=== PATIENT | male | born 1935 | race Caucasian/White ===

== ENCOUNTER → 2017-02-09 | Outpatient (REF) | payer OTHER, MEDICARE ==
[2017-02-09 13:13] LABS: ALBUMIN 3.5 GM/DL (3.2-5.2); ALKALINE PHOSPHATASE 64 U/L (45-117); ALT/SGPT 29 U/L (12-78); ANION GAP 6 MEQ/L (8-16); AST/SGOT 25 U/L (15-37); BILIRUBIN,TOTAL 1.5 MG/DL (0.2-1.0); BLOOD UREA NITROGEN 22 MG/DL (7-18); CALCIUM LEVEL 8.6 MG/DL (8.8-10.2); CARBON DIOXIDE LEVEL 27 MEQ/L (21-32); CHLORIDE LEVEL 106 MEQ/L (98-107); CHOLESTEROL LEVEL 177 MG/DL (<200); GLOMERULAR FILTRATION RATE > 60.0 (>35); GLUCOSE, FASTING 92 MG/DL (83-110); POTASSIUM SERUM 4.6 MEQ/L (3.5-5.1); SODIUM LEVEL 139 MEQ/L (136-145); TOTAL PROTEIN 6.2 GM/DL (6.4-8.2); TRIGLYCERIDES LEVEL 59 MG/DL (<150); URIC ACID 4.9 MG/DL (3.5-7.2)
== END ==
LOC: M LABDRAW1 11:40
PROVIDERS: ATTEND Internal Medicine
DX: M10.9 Gout, unspecified (principal); I10 Essential (primary) hypertension; E78.00 Pure hypercholesterolemia, unspecified

== ENCOUNTER → 2017-03-25 | Outpatient (REF) | payer MEDICARE, OTHER | LOC: M LABDRAW1 13:05 | PROVIDERS: ATTEND Urology | DX: Z87.898 Personal history of other specified conditions (principal) ==

== ENCOUNTER → 2017-05-13 | Outpatient (CLI) | payer MEDICARE, OTHER ==
--- NOTE | 2017-05-13 13:02 | REP ---
REASON FOR EXAM: Abdominal pain. COMPARISON: 12/27/2014 which is the latest prior. There are chronic changes in the lung bases status quo. There are no pleural or pericardial effusions. Limited evaluation of the solid intra-abdominal organs show no gross abnormalities or significant changes from the prior exam. There are stable hepatic cysts. Surgical clips are again seen in the gallbladder fossa from previous cholecystectomy. Limited evaluation of the pancreas and adrenal glands show no gross abnormalities or significant changes from the prior exam. Again seen in the left kidney there is a subcentimeter sized calculus which is not causing obstructive phenomena. In the right kidney there is a new 2 mm size calcification in the inferior pole region which is not causing obstructive phenomena. There are no ureteroliths and there are no urinary bladder calcifications. There are bilateral pelvic phleboliths status quo. 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 Limited evaluation of the abdominal aortic and para-aortic regions show no gross abnormalities or significant changes from the prior exam. Limited evaluation of the bowel loops and their mesenteries show no gross abnormalities or significant changes from the prior exam. Limited evaluation of the abdominal aorta and para-aortic regions show no gross abnormalities or significant changes from the prior exam. Mild calcific atherosclerotic change is again noted status quo. There is no free fluid or free air seen in the abdomen or pelvis. Bone window technique throughout the exam shows chronic spinal degenerative changes and postoperative changes status quo. IMPRESSION: There is a small new right nephrolith as described above. The examination is otherwise unchanged from the prior exam showing no evidence of acute intra-abdominal or intrapelvic disease. Signed by Jarrett Mcdonald DO 05/13/2017 04:44 P
== END ==
LOC: M RAD 11:22
PROVIDERS: ATTEND Urology
DX: N20.0 Calculus of kidney (principal)

== ENCOUNTER → 2018-01-11 | Outpatient (CLI) | payer MEDICARE, OTHER | LOC: M RAD 10:33 | DX: I70.213 Atherosclerosis of native arteries of extremities with intermittent claudication, bilateral legs (principal); M79.604 Pain in right leg; M79.605 Pain in left leg | CPT/HCPCS: 93923 ==

== ENCOUNTER → 2018-02-02 | Outpatient (REF) | payer MEDICARE, OTHER ==
[2018-02-02 12:20] LABS: BASO % 0.7 % (0.0-1.0); EOS # 0.2 10^3/uL (0.0-0.50); EOS % 3.7 % (0.0-3.0); HEMATOCRIT 41.9 % (42.0-52.0); HEMOGLOBIN 14.6 g/dl (13.5-17.5); IMMATURE GRANULOCYTE % 0.2 % (0-3.0); LYMPH # 1.1 10^3/uL (1.5-4.5); LYMPH % 18.7 % (24.0-44.0); MEAN CORPUSCULAR HEMOGLOBIN 31.4 pg (27.0-33.0); MEAN CORPUSCULAR HGB CONC 34.8 g/dl (32.0-36.5); MEAN CORPUSCULAR VOLUME 90.1 fl (80.0-96.0); MONO # 0.6 10^3/uL (0.0-0.8); MONO % 10.7 % (0.0-5.0); NEUTROPHILS # 3.7 10^3/uL (1.8-7.7); PLATELET COUNT, AUTOMATED 165 10^3/uL (150-450); RED BLOOD COUNT 4.65 10^6/uL (4.30-6.10); RED CELL DISTRIBUTION WIDTH 12.4 % (11.5-14.5); WHITE BLOOD COUNT 5.6 10^3/uL (4.0-10.0)
[2018-02-02 12:36] LABS: ANION GAP 7 MEQ/L (8-16); BLOOD UREA NITROGEN 23 MG/DL (7-18); CALCIUM LEVEL 8.8 MG/DL (8.8-10.2); CARBON DIOXIDE LEVEL 26 MEQ/L (21-32); CHLORIDE LEVEL 105 MEQ/L (98-107); CREATININE FOR GFR 1.13 MG/DL (0.70-1.30); GLOMERULAR FILTRATION RATE > 60.0 (>35); GLUCOSE, FASTING 89 MG/DL (70-100); POTASSIUM SERUM 4.8 MEQ/L (3.5-5.1); SODIUM LEVEL 138 MEQ/L (136-145)
== END ==
LOC: M LABDRAW1 11:40
DX: I25.10 Atherosclerotic heart disease of native coronary artery without angina pectoris (principal)
CPT/HCPCS: 80048

== ENCOUNTER → 2018-02-14 | Outpatient (REF) | payer MEDICARE, OTHER ==
[2018-02-14 13:01] LABS: ALBUMIN 4.1 GM/DL (3.2-5.2); ALBUMIN/GLOBULIN RATIO 1.37 (1.00-1.93); ALKALINE PHOSPHATASE 74 U/L (45-117); ALT/SGPT 30 U/L (12-78); ANION GAP 6 MEQ/L (8-16); AST/SGOT 27 U/L (7-37); BILIRUBIN,TOTAL 1.5 MG/DL (0.2-1.0); BLOOD UREA NITROGEN 24 MG/DL (7-18); CALCIUM LEVEL 8.8 MG/DL (8.8-10.2); CARBON DIOXIDE LEVEL 27 MEQ/L (21-32); CHLORIDE LEVEL 108 MEQ/L (98-107); CHOLESTEROL LEVEL 190 MG/DL (<200); CHOLESTEROL RISK RATIO 3.653 (<5); CREATININE FOR GFR 1.05 MG/DL (0.70-1.30); GLOMERULAR FILTRATION RATE > 60.0 (>35); GLUCOSE, FASTING 86 MG/DL (70-100); HDL CHOLESTEROL 52 MG/DL (>40); LDL CHOLESTEROL 120.8 MG/DL (<100); MAGNESIUM LEVEL 2.1 MG/DL (1.8-2.4); NON-HDL-C 138 MG/DL; POTASSIUM SERUM 4.5 MEQ/L (3.5-5.1); SODIUM LEVEL 141 MEQ/L (136-145); TOTAL PROTEIN 7.1 GM/DL (6.4-8.2); TRIGLYCERIDES LEVEL 86 MG/DL (<150); URIC ACID 4.6 MG/DL (3.5-7.2)
== END ==
LOC: M LABDRAW1 08:57
DX: M10.9 Gout, unspecified (principal); E78.00 Pure hypercholesterolemia, unspecified; I10 Essential (primary) hypertension
CPT/HCPCS: 83735

== ENCOUNTER → 2018-04-28 | Outpatient (REF) | payer MEDICARE, OTHER ==
[2018-04-28 12:51] LABS: BASO # 0.1 10^3/uL (0.0-0.2); BASO % 1.1 % (0.0-1.0); EOS # 0.3 10^3/uL (0.0-0.50); EOS % 4.5 % (0.0-3.0); HEMATOCRIT 37.5 % (42.0-52.0); IMMATURE GRANULOCYTE % 0.5 % (0-3.0); LYMPH # 1.1 10^3/uL (1.5-4.5); LYMPH % 20.1 % (24.0-44.0); MEAN CORPUSCULAR HEMOGLOBIN 31.6 pg (27.0-33.0); MEAN CORPUSCULAR HGB CONC 34.7 g/dl (32.0-36.5); MEAN CORPUSCULAR VOLUME 91.2 fl (80.0-96.0); MONO # 0.7 10^3/uL (0.0-0.8); MONO % 12.4 % (0.0-5.0); NEUTROPHILS # 3.4 10^3/uL (1.8-7.7); NEUTROPHILS % 61.4 % (36.0-66.0); PLATELET COUNT, AUTOMATED 132 10^3/uL (150-450); RED BLOOD COUNT 4.11 10^6/uL (4.30-6.10); RED CELL DISTRIBUTION WIDTH 12.7 % (11.5-14.5); WHITE BLOOD COUNT 5.6 10^3/uL (4.0-10.0)
[2018-04-28 13:23] LABS: ANION GAP 9 MEQ/L (8-16); BLOOD UREA NITROGEN 23 MG/DL (7-18); CALCIUM LEVEL 8.6 MG/DL (8.8-10.2); CARBON DIOXIDE LEVEL 27 MEQ/L (21-32); CHLORIDE LEVEL 105 MEQ/L (98-107); CREATININE FOR GFR 1.02 MG/DL (0.70-1.30); GLOMERULAR FILTRATION RATE > 60.0 (>35); GLUCOSE, FASTING 99 MG/DL (70-100); POTASSIUM SERUM 4.6 MEQ/L (3.5-5.1); SODIUM LEVEL 141 MEQ/L (136-145)
== END ==
LOC: M LABDRAW1 11:49
DX: R94.31 Abnormal electrocardiogram [ECG] [EKG] (principal); I35.0 Nonrheumatic aortic (valve) stenosis; I25.10 Atherosclerotic heart disease of native coronary artery without angina pectoris; I49.3 Ventricular premature depolarization
CPT/HCPCS: 80048

== ENCOUNTER → 2018-05-18 | Outpatient (REF) | payer MEDICARE, OTHER ==
[2018-05-18 13:18] LABS: PSA SCREENING 1.63 NG/ML (< 4.0)
== END ==
LOC: M SMT 12:24
DX: Z12.5 Encounter for screening for malignant neoplasm of prostate (principal)
CPT/HCPCS: G0103

== ENCOUNTER → 2018-05-25 | Outpatient (CLI) | payer MEDICARE, OTHER ==
[~2018-05-25] MED LIST: ACETAMINOPHEN 325 MG TAB As Ordered; HEPARIN 1,000 UNITS/ML 10ML VIAL (FOR RADIOLOGY& DIALYSIS ONLY) As Ordered; ISOVUE-300 61% 50ML VIAL (Q9967) As Ordered
== END | disposition home or self-care (01) ==
LOC: M IRPRO 08:01
DX: I70.213 Atherosclerosis of native arteries of extremities with intermittent claudication, bilateral legs (principal); I70.0 Atherosclerosis of aorta
CPT/HCPCS: 36247

== ENCOUNTER → 2018-07-21 | Outpatient (REF) | payer MEDICARE, OTHER ==
[2018-07-21 17:40] LABS: HEMATOCRIT 37.3 % (42.0-52.0); HEMOGLOBIN 12.9 g/dl (13.5-17.5); MEAN CORPUSCULAR HEMOGLOBIN 31.5 pg (27.0-33.0); MEAN CORPUSCULAR HGB CONC 34.6 g/dl (32.0-36.5); PLATELET COUNT, AUTOMATED 130 10^3/uL (150-450); RED CELL DISTRIBUTION WIDTH 12.3 % (11.5-14.5); WHITE BLOOD COUNT 5.3 10^3/uL (4.0-10.0)
[2018-07-21 17:49] LABS: ALBUMIN 3.7 GM/DL (3.2-5.2); ALBUMIN/GLOBULIN RATIO 1.48 (1.00-1.93); ALKALINE PHOSPHATASE 66 U/L (45-117); ALT/SGPT 33 U/L (12-78); ANION GAP 6 MEQ/L (8-16); AST/SGOT 39 U/L (7-37); BILIRUBIN,TOTAL 1.5 MG/DL (0.2-1.0); BLOOD UREA NITROGEN 19 MG/DL (7-18); CALCIUM LEVEL 8.4 MG/DL (8.8-10.2); CARBON DIOXIDE LEVEL 30 MEQ/L (21-32); CHLORIDE LEVEL 106 MEQ/L (98-107); CHOLESTEROL LEVEL 173 MG/DL (<200); CHOLESTEROL RISK RATIO 3.145 (<5); GLOMERULAR FILTRATION RATE > 60.0 (>35); GLUCOSE, FASTING 80 MG/DL (70-100); HDL CHOLESTEROL 55 MG/DL (>40); LDL CHOLESTEROL 108 MG/DL (<100); MAGNESIUM LEVEL 1.9 MG/DL (1.8-2.4); NON-HDL-C 118 MG/DL; POTASSIUM SERUM 4.1 MEQ/L (3.5-5.1); SODIUM LEVEL 142 MEQ/L (136-145); TOTAL PROTEIN 6.2 GM/DL (6.4-8.2); TRIGLYCERIDES LEVEL 51 MG/DL (<150); URIC ACID 5.2 MG/DL (3.5-7.2)
== END ==
LOC: M LABDRAW1 16:28
DX: Z79.899 Other long term (current) drug therapy (principal); E78.00 Pure hypercholesterolemia, unspecified; I10 Essential (primary) hypertension; M10.9 Gout, unspecified
CPT/HCPCS: 83735

== ENCOUNTER → 2019-01-23 | Outpatient (REF) | payer MEDICARE, OTHER ==
[2019-01-23 16:26] LABS: ALBUMIN 3.8 GM/DL (3.2-5.2); ALT/SGPT 23 U/L (12-78); BILIRUBIN,TOTAL 1.1 MG/DL (0.2-1.0); BLOOD UREA NITROGEN 23 MG/DL (7-18); CALCIUM LEVEL 8.4 MG/DL (8.8-10.2); CARBON DIOXIDE LEVEL 27 MEQ/L (21-32); CHLORIDE LEVEL 108 MEQ/L (98-107); CHOLESTEROL LEVEL 164 MG/DL (<200); CHOLESTEROL RISK RATIO 2.981 (<5); CREATININE FOR GFR 0.99 MG/DL (0.70-1.30); GLOMERULAR FILTRATION RATE > 60.0 (>35); GLUCOSE, FASTING 91 MG/DL (70-100); HDL CHOLESTEROL 55 MG/DL (>40); LDL CHOLESTEROL 98 MG/DL (<100); MAGNESIUM LEVEL 1.9 MG/DL (1.8-2.4); NON-HDL-C 109 MG/DL; POTASSIUM SERUM 4.4 MEQ/L (3.5-5.1); SODIUM LEVEL 139 MEQ/L (136-145); TOTAL PROTEIN 6.7 GM/DL (6.4-8.2); TRIGLYCERIDES LEVEL 54 MG/DL (<150); URIC ACID 4.2 MG/DL (3.5-7.2)
[2019-01-23 16:37] LABS: HEMATOCRIT 38.5 % (42.0-52.0); MEAN CORPUSCULAR HEMOGLOBIN 31.3 pg (27.0-33.0); MEAN CORPUSCULAR HGB CONC 33.8 g/dl (32.0-36.5); MEAN CORPUSCULAR VOLUME 92.8 fl (80.0-96.0); PLATELET COUNT, AUTOMATED 159 10^3/uL (150-450); RED BLOOD COUNT 4.15 10^6/uL (4.30-6.10); WHITE BLOOD COUNT 6.2 10^3/uL (4.0-10.0)
== END ==
LOC: M LABDRAW1 15:49 → M SFHCPLAZ 15:49
PROVIDERS: ATTEND Internal Medicine
DX: R06.09 Other forms of dyspnea (principal); I10 Essential (primary) hypertension; E78.00 Pure hypercholesterolemia, unspecified; M10.9 Gout, unspecified

== ENCOUNTER → 2019-02-06 | Outpatient (REF) | payer MEDICARE, OTHER ==
[2019-02-06 12:33] LABS: HEMOGLOBIN 13.4 g/dl (13.5-17.5)
[2019-02-06 12:42] LABS: INR 1.02; PROTHROMBIN TIME 13.5 SECONDS (12.1-14.4)
[2019-02-06 12:43] LABS: PARTIAL THROMBOPLASTIN TIME 32.3 SECONDS (25.4-37.6)
[2019-02-06 13:06] LABS: TOTAL PROTEIN 6.2 GM/DL (6.4-8.2)
[2019-02-08 10:55] LABS: ALBUMIN % 60.5 % (55.8-66.1); ALPHA-1-GLOBULIN % 4.5 % (2.9-4.9); ALPHA-2-GLOBULINS % 10.7 % (7.1-11.8)
[2019-02-08 10:56] LABS: ALBUMIN 3.75 GM/DL (3.29-5.55); ALPHA-1-GLOBULINS 0.28 GM/DL (0.17-0.41); ALPHA-2-GLOBULINS 0.66 GM/DL (0.42-0.99); BETA-1-GLOBULINS 0.36 GM/DL (0.28-0.60); BETA-1-GLOBULINS % 5.8 % (4.7-7.2); BETA-2-GLOBULINS 0.34 GM/DL (0.19-0.55); BETA-2-GLOBULINS % 5.5 % (3.2-6.5); GAMMA GLOBULINS 0.81 GM/DL (0.65-1.58)
[2019-02-08 14:11] LABS: ANTINUCLEAR ANTIBODIES DIRECT Negative (Negative)
== END ==
LOC: M LABDRAW1 11:37
PROVIDERS: ATTEND Ophthalmology
DX: H34.8310 Tributary (branch) retinal vein occlusion, right eye, with macular edema (principal)

== ENCOUNTER 2019-04-06 07:00 | Day surgery (SDC) | payer MEDICARE, OTHER ==
[~2019-04-06] VITALS: Ht 182.9 cm; Wt 80.7 kg
[~2019-04-06 07:00] MED LIST changes: -ACETAMINOPHEN 325 MG TAB As Ordered; +ASPI81TA85 PO; +ATOR40TA75 PO; +BIMA01SOL OU; +COSO1SOL2 OU; +ESOM40CA35 PO; +GABA600T4 PO; -HEPARIN 1,000 UNITS/ML 10ML VIAL (FOR RADIOLOGY& DIALYSIS ONLY) As Ordered; -ISOVUE-300 61% 50ML VIAL (Q9967) As Ordered; +LOSA50TA88 PO; +NS 1,000 ML IV ONE; +OMEG10002 PO; +POTA10808 PO; +ZYLO300T6 PO
[2019-04-06] MEDS ORDERED: LIDOCAINE 2% INJ 100 MG/5 ML SDV (FOR ANES.) As Ordered ONE (07:13)
[2019-04-06] MEDS ORDERED: PROPOFOL 200 MG/20 ML VIAL As Ordered ONE (07:13)
--- NOTE | 2019-04-06 08:49 | ROOR ---
Patient Name: Zia Cisneros Procedure Date: 04/06/2019 8:32 AM Date of : 1935 Age: 83 Room: [facility] Gender: Male Note Status: Finalized Procedure: Colonoscopy Indications: Screening for colorectal malignant neoplasm Providers: Jewel Clarke Jr, MD Referring MD: Seth Yanes MD Requesting Provider: Medicines: Propofol per Anesthesia Complications: No immediate complications. Procedure: Pre-Anesthesia Assessment: - Prior to the procedure, a History and Physical was performed, and patient medications and allergies were reviewed. The patient is competent. The risks and benefits of the procedure and the sedation options and risks were discussed with the patient. All questions were answered and informed consent was obtained. Patient identification and proposed procedure were verified by the physician and the nurse in the pre-procedure area and in the procedure room. Mental Status Examination: alert and oriented. Airway Examination: normal oropharyngeal airway and neck mobility. Respiratory Examination: clear to auscultation. CV Examination: normal. ASA Grade Assessment: II - A patient with mild systemic disease. After reviewing the risks and benefits, the patient was deemed in satisfactory condition to undergo the procedure. The anesthesia plan was to use moderate sedation / analgesia (conscious sedation). Immediately prior to administration of medications, the patient was re-assessed for adequacy to receive sedatives. The heart rate, respiratory rate, oxygen saturations, blood pressure, adequacy of pulmonary ventilation, and response to care were monitored throughout the procedure. The physical status of the patient was re-assessed after the procedure. The Colonoscope was introduced through the anus and advanced to the cecum, identified by appendiceal orifice and ileocecal valve. The colonoscopy was performed without difficulty. The patient tolerated the procedure well. Findings: A few small and large-mouthed diverticula were found in the sigmoid colon. A medium polyp was found in the sigmoid colon. The polyp was pedunculated. The polyp was removed with a hot snare. Resection and retrieval were complete. The rectum, recto-sigmoid colon, descending colon, transverse colon, ascending colon, cecum, appendiceal orifice and ileocecal valve appeared normal. Impression: - Diverticulosis in the sigmoid colon. - One medium polyp in the sigmoid colon, removed with a hot snare. Resected and retrieved. - The rectum, recto-sigmoid colon, descending colon, transverse colon, ascending colon, cecum, appendiceal orifice and ileocecal valve are normal. Recommendation: - Discharge patient to home (ambulatory). - Repeat colonoscopy in 5 years for surveillance. Jewel Clarke MD Jewel Clarke Jr, MD 04/06/2019 8:49:27 AM Electronically signed by Jewel Clarke Jr, MD Number of Addenda: 0 Note Initiated On: 04/06/2019 8:32 AM Estimated Blood Loss: Estimated blood loss: none.
[2019-04-06 09:39] VITALS: BP 177/98
== END 2019-04-06 09:40 | disposition home or self-care (01) ==
LOC: M OPP 07:00
PROVIDERS: ATTEND Surgery
DX: Z12.11 Encounter for screening for malignant neoplasm of colon (principal); D12.5 Benign neoplasm of sigmoid colon; K57.30 Diverticulosis of large intestine without perforation or abscess without bleeding; Z79.82 Long term (current) use of aspirin; Z79.899 Other long term (current) drug therapy; Z88.8 Allergy status to other drugs, medicaments and biological substances; I65.29 Occlusion and stenosis of unspecified carotid artery; I34.0 Nonrheumatic mitral (valve) insufficiency

== ENCOUNTER → 2019-07-12 | Outpatient (REF) | payer MEDICARE, OTHER ==
[~2019-07-12] MED LIST changes: -NS 1,000 ML IV ONE
[2019-07-12 13:35] LABS: HEMATOCRIT 37.5 % (42.0-52.0); HEMOGLOBIN 12.9 g/dl (13.5-17.5); MEAN CORPUSCULAR HEMOGLOBIN 31.7 pg (27.0-33.0); MEAN CORPUSCULAR HGB CONC 34.4 g/dl (32.0-36.5); MEAN CORPUSCULAR VOLUME 92.1 fl (80.0-96.0); PLATELET COUNT, AUTOMATED 115 10^3/uL (150-450); RED BLOOD COUNT 4.07 10^6/uL (4.30-6.10); WHITE BLOOD COUNT 5.1 10^3/uL (4.0-10.0)
[2019-07-12 13:55] LABS: ALBUMIN 3.7 GM/DL (3.2-5.2); ALT/SGPT 28 U/L (12-78); BILIRUBIN,TOTAL 1.3 MG/DL (0.2-1.0); BLOOD UREA NITROGEN 22 MG/DL (7-18); CALCIUM LEVEL 8.8 MG/DL (8.8-10.2); CARBON DIOXIDE LEVEL 27 MEQ/L (21-32); CHLORIDE LEVEL 106 MEQ/L (98-107); CHOLESTEROL LEVEL 159 MG/DL (<200); CREATININE FOR GFR 1.01 MG/DL (0.70-1.30); GLOMERULAR FILTRATION RATE > 60.0 (>35); GLUCOSE, FASTING 86 MG/DL (70-100); HDL CHOLESTEROL 55 MG/DL (>40); LDL CHOLESTEROL 91 MG/DL (<100); MAGNESIUM LEVEL 1.8 MG/DL (1.8-2.4); NON-HDL-C 104 MG/DL; POTASSIUM SERUM 4.4 MEQ/L (3.5-5.1); SODIUM LEVEL 140 MEQ/L (136-145); TOTAL PROTEIN 6.3 GM/DL (6.4-8.2); TRIGLYCERIDES LEVEL 65 MG/DL (<150); URIC ACID 4.7 MG/DL (3.5-7.2)
== END ==
LOC: M LABDRAW1 12:01
PROVIDERS: ATTEND Internal Medicine
DX: I10 Essential (primary) hypertension (principal); E78.00 Pure hypercholesterolemia, unspecified; M10.9 Gout, unspecified; Z79.899 Other long term (current) drug therapy

== ENCOUNTER → 2019-07-26 | Outpatient (REF) | payer MEDICARE, OTHER ==
[2019-07-26 12:20] LABS: FOLATE 9.5 NG/ML
== END ==
LOC: M LABDRAW1 11:44
PROVIDERS: ATTEND Internal Medicine
DX: R26.89 Other abnormalities of gait and mobility (principal)

== ENCOUNTER → 2020-01-16 | Outpatient (CLI) | payer MEDICARE, OTHER | LOC: M LABSMTC 11:05 | PROVIDERS: ATTEND Family Medicine | DX: Z11.59 Encounter for screening for other viral diseases (principal); Z20.828 Contact with and (suspected) exposure to other viral communicable diseases ==

== ENCOUNTER → 2020-01-23 | Outpatient (REF) | payer MEDICARE, OTHER ==
[2020-01-23 10:19] LABS: HEMATOCRIT 40.6 % (42.0-52.0); MEAN CORPUSCULAR HEMOGLOBIN 32.5 pg (27.0-33.0); MEAN CORPUSCULAR HGB CONC 34.5 g/dl (32.0-36.5); MEAN CORPUSCULAR VOLUME 94.2 fl (80.0-96.0); PLATELET COUNT, AUTOMATED 134 10^3/uL (150-450); RED BLOOD COUNT 4.31 10^6/uL (4.30-6.10)
[2020-01-23 10:36] LABS: ALBUMIN 3.6 GM/DL (3.2-5.2); ALT/SGPT 26 U/L (12-78); BILIRUBIN,TOTAL 1.2 MG/DL (0.2-1.0); BLOOD UREA NITROGEN 22 MG/DL (7-18); CALCIUM LEVEL 8.5 MG/DL (8.8-10.2); CARBON DIOXIDE LEVEL 29 MEQ/L (21-32); CHLORIDE LEVEL 109 MEQ/L (98-107); CREATININE FOR GFR 1.08 MG/DL (0.70-1.30); GLOMERULAR FILTRATION RATE > 60.0 (>35); GLUCOSE, FASTING 97 MG/DL (70-100); MAGNESIUM LEVEL 1.9 MG/DL (1.8-2.4); POTASSIUM SERUM 4.6 MEQ/L (3.5-5.1); SODIUM LEVEL 141 MEQ/L (136-145); TOTAL PROTEIN 6.7 GM/DL (6.4-8.2); URIC ACID 4.1 MG/DL (3.5-7.2)
== END ==
LOC: M LABDRAW1 08:09
PROVIDERS: ATTEND Internal Medicine
DX: M10.9 Gout, unspecified (principal); I10 Essential (primary) hypertension; Z95.2 Presence of prosthetic heart valve

== ENCOUNTER → 2020-07-16 | Outpatient (CLI) | payer MEDICARE, OTHER ==
[~2020-07-16] MED LIST changes: -ASPI81TA85 PO; +ASPI81TA86 PO
[2020-07-16 15:48] LABS: HEMATOCRIT 41.7 % (42.0-52.0); HEMOGLOBIN 13.9 g/dl (13.5-17.5); MEAN CORPUSCULAR HEMOGLOBIN 31.2 pg (27.0-33.0); MEAN CORPUSCULAR HGB CONC 33.3 g/dl (32.0-36.5); MEAN CORPUSCULAR VOLUME 93.7 fl (80.0-96.0); PLATELET COUNT, AUTOMATED 161 10^3/uL (150-450); RED BLOOD COUNT 4.45 10^6/uL (4.30-6.10)
[2020-07-16 20:20] LABS: ALT/SGPT 28 U/L (12-78); BILIRUBIN,TOTAL 1.9 MG/DL (0.2-1.0); BLOOD UREA NITROGEN 20 MG/DL (7-18); CALCIUM LEVEL 9.3 MG/DL (8.8-10.2); CARBON DIOXIDE LEVEL 27 MEQ/L (21-32); CHLORIDE LEVEL 105 MEQ/L (98-107); CHOLESTEROL LEVEL 189 MG/DL (<200); CHOLESTEROL RISK RATIO 3.258 (<5); CREATININE FOR GFR 1.01 MG/DL (0.70-1.30); GLOMERULAR FILTRATION RATE > 60.0 (>35); GLUCOSE, FASTING 77 MG/DL (70-100); HDL CHOLESTEROL 58 MG/DL (>40); LDL CHOLESTEROL 117 MG/DL (<100); MAGNESIUM LEVEL 2.1 MG/DL (1.8-2.4); NON-HDL-C 131 MG/DL; POTASSIUM SERUM 4.6 MEQ/L (3.5-5.1); SODIUM LEVEL 138 MEQ/L (136-145); TOTAL PROTEIN 7.1 GM/DL (6.4-8.2); TRIGLYCERIDES LEVEL 68 MG/DL (<150); URIC ACID 5.3 MG/DL (3.5-7.2)
[2020-07-17 14:08] LABS: VITAMIN B12 LEVEL 439 PG/ML (247-911)
== END ==
LOC: M PLALAB 14:10
PROVIDERS: ATTEND Internal Medicine
DX: I10 Essential (primary) hypertension (principal); I25.10 Atherosclerotic heart disease of native coronary artery without angina pectoris; E78.00 Pure hypercholesterolemia, unspecified; Z95.2 Presence of prosthetic heart valve; I34.0 Nonrheumatic mitral (valve) insufficiency; E53.8 Deficiency of other specified B group vitamins; M10.9 Gout, unspecified

== ENCOUNTER → 2021-01-23 | Outpatient (REF) | payer OTHER ==
[2021-01-23 11:44] LABS: ALT/SGPT 29 U/L (12-78); BILIRUBIN,TOTAL 1.2 MG/DL (0.2-1.0); BLOOD UREA NITROGEN 20 MG/DL (7-18); CALCIUM LEVEL 9.2 MG/DL (8.8-10.2); CARBON DIOXIDE LEVEL 32 MEQ/L (21-32); CHLORIDE LEVEL 109 MEQ/L (98-107); CHOLESTEROL LEVEL 170 MG/DL (<200); CHOLESTEROL RISK RATIO 2.931 (<5); CREATININE FOR GFR 0.91 MG/DL (0.70-1.30); GLOMERULAR FILTRATION RATE > 60.0 (>35); GLUCOSE, FASTING 102 MG/DL (70-100); HDL CHOLESTEROL 58 MG/DL (>40); LDL CHOLESTEROL 98 MG/DL (<100); NON-HDL-C 112 MG/DL; POTASSIUM SERUM 4.6 MEQ/L (3.5-5.1); SODIUM LEVEL 142 MEQ/L (136-145); TOTAL PROTEIN 6.7 GM/DL (6.4-8.2); TRIGLYCERIDES LEVEL 68 MG/DL (<150); URIC ACID 4.3 MG/DL (3.5-7.2)
== END ==
LOC: M PLALAB 08:08
PROVIDERS: ATTEND Internal Medicine
DX: E78.00 Pure hypercholesterolemia, unspecified (principal); M10.9 Gout, unspecified

== ENCOUNTER → 2021-06-10 | Outpatient (CLI) | payer MEDICARE, OTHER ==
--- NOTE | 2021-06-10 11:54 | REP ---
INDICATION: WEDGE COMPRESSION FX OF FIRST LUMBAR VERTEBRA. COMPARISON: None. TECHNIQUE: Axial noncontrast images of the thoracic spine with coronal and sagittal reformations. FINDINGS: Age-related osteopenia and moderate to advanced multilevel degenerative changes include osteophytosis, endplate sclerosis and minimal disc space narrowing. Alignment and kyphosis is maintained. No obvious acute vertebral body fracture or compression injury is identified. The spinal canal is patent. The posterior elements and spinous processes demonstrate hypertrophic changes without acute injury. Paravertebral soft tissues and visualized lung morales are grossly unremarkable. IMPRESSION: Age-related osteopenia and multilevel degenerative changes. No obvious acute fracture/compression injury or subluxation identified. <Electronically signed by Israel Garcia > 06/10/21 [id number]
--- NOTE | 2021-06-10 11:58 | REP ---
INDICATION: WEDGE COMPRESSION FX OF FIRST LUMBAR VERTEBRA. COMPARISON: None. TECHNIQUE: Axial noncontrast images of the lumbosacral spine from mid T12 through mid sacrum with coronal and sagittal reformations. This CT examination was performed using the following dose reduction techniques: Automated exposure control, adjustment of mA and/or kv according to the patient's size, and use of iterative reconstruction technique. FINDINGS: There is a subtle compression fracture involving the superior endplate of L5 with less than 10% loss of vertebral body height and no evidence for retropulsed fracture fragment. The patient appears to be status post posterior spinous fixation spanning spinous processes of L4 and L5. No further obvious acute compression fracture is identified. Age-related osteopenia and moderate to early advanced multilevel degenerative changes are noted including elements of endplate sclerosis, marginal spurring and osteophytosis as well as elements of vacuum phenomenon at L1-2 as well as T12-L1 and T11-T12. Facet hypertrophy is also noted. The spinal canal appears mildly chronically stenotic. IMPRESSION: 1. Evidence for mild compression fracture at L5 with prior orthopedic fixation spanning the L4-L5 spinous processes. No associated retropulsed fracture fragment. 2. Age-related osteopenia and moderate to advanced multilevel degenerative spondylosis noted throughout the remainder of the examination. <Electronically signed by Israel Garcia > 06/10/21 [id number]
== END ==
LOC: M RAD 10:38
PROVIDERS: ATTEND Physician Assistant Surgical
DX: S32.010A Wedge compression fracture of first lumbar vertebra, initial encounter for closed fracture (principal); X58.XXXA Exposure to other specified factors, initial encounter; Y92.9 Unspecified place or not applicable; Y93.9 Activity, unspecified; Y99.9 Unspecified external cause status; M85.88 Other specified disorders of bone density and structure, other site; M51.35 Other intervertebral disc degeneration, thoracolumbar region

== ENCOUNTER → 2021-07-25 | Outpatient (CLI) | payer MEDICARE, OTHER ==
[2021-07-25 11:40] LABS: BASO % 0.7 % (0.0-1.0); EOS # 0.2 10^3/uL (0.0-0.5); EOS % 4.3 % (0.0-3.0); HEMATOCRIT 39.5 % (42.0-52.0); HEMOGLOBIN 13.2 g/dl (13.5-17.5); LYMPH # 1.3 10^3/uL (1.5-5.0); MEAN CORPUSCULAR HEMOGLOBIN 31.1 pg (27.0-33.0); MEAN CORPUSCULAR HGB CONC 33.4 g/dl (32.0-36.5); MEAN CORPUSCULAR VOLUME 93.2 fl (80.0-96.0); MONO # 0.7 10^3/uL (0.0-0.8); MONO % 11.7 % (2.0-8.0); NEUTROPHILS # 3.3 10^3/uL (1.5-8.5); NEUTROPHILS % 59.9 % (36.0-66.0); PLATELET COUNT, AUTOMATED 142 10^3/uL (150-450); RED BLOOD COUNT 4.24 10^6/uL (4.30-6.10); WHITE BLOOD COUNT 5.6 10^3/uL (4.0-10.0)
[2021-07-25 13:47] LABS: ALBUMIN 3.4 GM/DL (3.2-5.2); ALT/SGPT 26 U/L (12-78); BILIRUBIN,TOTAL 0.8 MG/DL (0.2-1.0); BLOOD UREA NITROGEN 24 MG/DL (7-18); CALCIUM LEVEL 9.1 MG/DL (8.8-10.2); CARBON DIOXIDE LEVEL 29 MEQ/L (21-32); CHLORIDE LEVEL 106 MEQ/L (98-107); CHOLESTEROL LEVEL 150 MG/DL (<200); CHOLESTEROL RISK RATIO 2.727 (<5); CREATININE FOR GFR 1.07 MG/DL (0.70-1.30); GLOMERULAR FILTRATION RATE > 60.0 (>35); GLUCOSE, FASTING 96 MG/DL (70-100); HDL CHOLESTEROL 55 MG/DL (>40); LDL CHOLESTEROL 83 MG/DL (<100); NON-HDL-C 95 MG/DL; POTASSIUM SERUM 4.7 MEQ/L (3.5-5.1); SODIUM LEVEL 138 MEQ/L (136-145); TOTAL PROTEIN 6.4 GM/DL (6.4-8.2); TRIGLYCERIDES LEVEL 60 MG/DL (<150); URIC ACID 3.8 MG/DL (3.5-7.2)
== END ==
LOC: M PLALAB 08:02
PROVIDERS: ATTEND Internal Medicine
DX: M10.9 Gout, unspecified (principal); K21.9 Gastro-esophageal reflux disease without esophagitis; E78.00 Pure hypercholesterolemia, unspecified; I10 Essential (primary) hypertension

== ENCOUNTER → 2021-08-06 | Outpatient (CLI) | payer MEDICARE, OTHER ==
--- NOTE | 2021-08-06 11:46 | DEXAMM ---
INDICATION: HX VERTEBRAL COMPRESSION FX. COMPARISON: 03/03/2005. TECHNIQUE: Bone density was measured using dual-energy x-ray absorptiometry (DEXA). FINDINGS: AP SPINE L1-L4 BMD 1.434 g/cm2 Young Adult T-Score 1.9 Age Matched Z-Score 2.4. LT FEMUR, TOTAL BMD 1.046 g/cm2 Young Adult T-Score 0.3 Age Matched Z-Score 1.0. LT NECK BMD 0.876 g/cm2 Young Adult T-Score -1.2 Age Matched Z-Score 0.2. RT FEMUR, TOTAL BMD 1.047 g/cm2 Young Adult T-Score 0.3 Age Matched Z-Score 1.0. RT NECK BMD 0.896 g/cm2 Young Adult T-Score -1.0 Age Matched Z-Score 0.4. IMPRESSION: There is normal bone density of the spine. There is low bone density of the left hip. There is low bone density of the right hip. The density of the spine has increased 4.6% since the initial exam on 03/03/2005. The density of the left hip has decreased 7.5% since initial exam on 03/03/2005. The density of the right hip has decreased 7.8% since the initial exam on 03/03/2005. FOLLOW-UP: Recommendation for the next bone density exam: 2 years. <Electronically signed by Prosper Lou > 08/06/21 [id number]
== END ==
LOC: M WHC 09:21
PROVIDERS: ATTEND Internal Medicine
DX: Z87.81 Personal history of (healed) traumatic fracture (principal); M85.851 Other specified disorders of bone density and structure, right thigh; M85.852 Other specified disorders of bone density and structure, left thigh

== ENCOUNTER → 2021-08-29 | Outpatient (CLI) | payer MEDICARE, OTHER | LOC: M LABSMTC 12:01 | PROVIDERS: ATTEND Family Medicine | DX: Z20.822 Contact with and (suspected) exposure to COVID-19 (principal) | CPT/HCPCS: C9803; U0003 ==

== ENCOUNTER 2021-09-07 16:27 | Inpatient (IN) | payer MEDICARE, OTHER ==
[~2021-09-07] VITALS: Ht 175.3 cm; Wt 80.3 kg
[~2021-09-07 16:27] MED LIST changes: +LOSA50TA28 PO; -LOSA50TA88 PO
[2021-09-07 16:59] LABS: BASO % 0.2 % (0.0-1.0); EOS % 0.3 % (0.0-3.0); HEMATOCRIT 37.8 % (42.0-52.0); HEMOGLOBIN 12.8 g/dl (13.5-17.5); LYMPH # 1.1 10^3/uL (1.5-5.0); LYMPH % 9.2 % (24.0-44.0); MEAN CORPUSCULAR HEMOGLOBIN 31.5 pg (27.0-33.0); MEAN CORPUSCULAR HGB CONC 33.9 g/dl (32.0-36.5); MEAN CORPUSCULAR VOLUME 93.1 fl (80.0-96.0); MONO # 1.8 10^3/uL (0.0-0.8); MONO % 15.5 % (2.0-8.0); NEUTROPHILS # 8.6 10^3/uL (1.5-8.5); NEUTROPHILS % 74.3 % (36.0-66.0); PLATELET COUNT, AUTOMATED 108 10^3/uL (150-450); RED BLOOD COUNT 4.06 10^6/uL (4.30-6.10); WHITE BLOOD COUNT 11.6 10^3/uL (4.0-10.0)
[2021-09-07 17:23] LABS: CK-MB VALUE MASS 3.3 NG/ML (<3.6); MB/CK RELATIVE INDEX 3.51 (< OR =4); TROPONIN I 0.11 NG/ML (< 0.10)
[2021-09-07 17:31] LABS: ALBUMIN 3.1 GM/DL (3.2-5.2); BILIRUBIN,DIRECT 0.5 MG/DL (0.0-0.2); CALCIUM LEVEL 8.6 MG/DL (8.8-10.2); CREATININE FOR GFR 1.61 MG/DL (0.70-1.30); GLOMERULAR FILTRATION RATE 43.6 (>35); POTASSIUM SERUM 4.8 MEQ/L (3.5-5.1); THYROID STIMULATING HORMONE 1.55 uIU/ML (0.358-3.740); TOTAL PROTEIN 6.2 GM/DL (6.4-8.2)
[2021-09-07] MEDS ORDERED: AMIODARONE HCL 150 MG in IV 1 EA IV STA (17:33)
[2021-09-07] MEDS ORDERED: ISOVUE-370 76% 100ML VIAL As Ordered ONE (17:49)
[2021-09-07] MEDS ORDERED: ASPI81TA26 PO (19:12)
[2021-09-07] MEDS ORDERED: ALLO300T2 PA (19:12)
[2021-09-07] MEDS ORDERED: REST0.05 OU (19:14)
[2021-09-07] MEDS ORDERED: IBUP-1022 PO (19:14)
[2021-09-07] MEDS ORDERED: TRAM50TA2 PO (19:14)
[2021-09-07] MEDS ORDERED: HOME MED LIST COMPLETE! XX SCH (19:15)
[2021-09-07] MEDS ORDERED: cefTRIAXone SOD 1 GM in D5W MINI-BAG PLUS 50 ML IV ONE (19:35)
[2021-09-07] MEDS ORDERED: NS 500 ML IV ONE (19:35)
[2021-09-07] MEDS ORDERED: MAALOX 30 ML SUSP *UDC PO PRN (19:50)
[2021-09-07] MEDS ORDERED: VANCOMYCIN HCL IV SCH (19:50)
[2021-09-07] MEDS ORDERED: MOM 30ML SUSPENSION UDC PO PRN (19:50)
[2021-09-07] MEDS ORDERED: FLUID PLACE HOLDER IV SCH (19:50)
[2021-09-07] MEDS ORDERED: ACETAMINOPHEN TAB 650MG DOSE (2X325MG) PO PRN (19:50)
[2021-09-07] MEDS ORDERED: AZITHROMYCIN INJ 500 MG, VIAL MATE ADAPTER 1 EACH in NS 250 ML IV ONE (20:05)
[2021-09-07] MEDS ORDERED: LR 1,000 ML IV ONE ×2 (22:25→23:25)
[2021-09-07] MEDS ORDERED: VANCOMYCIN HCL 1,000 MG, VIAL MATE ADAPTER 1 EACH in NS 250 ML IV ONE (22:30)
[2021-09-07] MEDS ORDERED: ONDANSETRON 4MG/2ML VIAL As Ordered ONE (22:38)
[2021-09-07] MEDS: ONDANSETRON 4MG/2ML VIAL IV PRN (22:44)
[2021-09-07 23:00] VITALS: BP 112/83
[2021-09-07 23:06] LABS: HEMOGLOBIN A1c 5.6 %
[2021-09-07 23:13] LABS: TROPONIN I 0.1 NG/ML (< 0.10)
[2021-09-07 23:14] LABS: CHOLESTEROL RISK RATIO 4.518 (<5)
[2021-09-07 23:15] VITALS: BP 114/81
[2021-09-07 23:30] VITALS: BP 115/81
[2021-09-08] VITALS (33 sets, daily range): BP systolic 93–125; BP diastolic 66–85; O2SAT 97–100
[2021-09-08] MEDS ORDERED: BENZONATATE 100MG CAPSULE PO PRN (00:15)
[2021-09-08] MEDS ORDERED: VANCOMYCIN HCL 1,000 MG, VIAL MATE ADAPTER 1 EACH in NS 250 ML IV ONE (00:35)
[2021-09-08] MEDS: LR 1,000 ML IV SCH ×2 (01:39→15:36)
[2021-09-08 02:15] LABS: APPEARANCE, URINE HAZY (CLEAR); BACTERIA, URINE AUTO NEGATIVE (NEGATIVE); BILIRUBIN, URINE AUTO NEGATIVE (NEGATIVE); BLOOD, URINE BLOOD 1+ (NEGATIVE); COLOR, URINE YELLOW (YELLOW); GLUCOSE, URINE (UA) AUTO NEGATIVE (NEGATIVE); KETONE, URINE AUTO NEGATIVE (NEGATIVE); LEUKOCYTE ESTERASE, URINE AUTO NEGATIVE (NEGATIVE); MUCUS, URINE SMALL (NEGATIVE); NITRITE, URINE AUTO NEGATIVE (NEGATIVE); PROTEIN, URINE AUTO 1+ mg/dL (NEGATIVE); RBC, URINE AUTO 3 /HPF (0-3); SPECIFIC GRAVITY URINE AUTO 1.027 (1.002-1.035); SQUAMOUS EPITHELIAL CELL UR AU 0 /HPF (0-6); UROBILINOGEN, URINE AUTO 0.2 mg/dL (0.0-2.0); WBC, URINE AUTO 3 /HPF (0-3)
[2021-09-08 02:38] LABS: CREATININE,RANDOM URINE 78.9 MG/DL; TOTAL PROTEIN,RANDOM URINE 31.9 MG/DL (0.0-12.0)
[2021-09-08] MEDS ORDERED: METOPROLOL 5 MG/5 ML VIAL IV STA ×2 (02:47→06:00)
[2021-09-08] MEDS: VANCOMYCIN HCL 750 MG, VIAL MATE ADAPTER 1 EACH in NS 250 ML IV SCH ×2 (03:20→14:23)
[2021-09-08 03:45] LABS: HEMATOCRIT 35.4 % (42.0-52.0); HEMOGLOBIN 11.7 g/dl (13.5-17.5); MEAN CORPUSCULAR HEMOGLOBIN 31.7 pg (27.0-33.0); MEAN CORPUSCULAR HGB CONC 33.1 g/dl (32.0-36.5); MEAN CORPUSCULAR VOLUME 95.9 fl (80.0-96.0); RED BLOOD COUNT 3.69 10^6/uL (4.30-6.10); WHITE BLOOD COUNT 11.6 10^3/uL (4.0-10.0)
[2021-09-08 03:54] LABS: INR 1.35; PROTHROMBIN TIME 17.1 SECONDS (12.7-14.5)
[2021-09-08 04:00] LABS: PLATELET COUNT, AUTOMATED 90 10^3/uL (150-450)
[2021-09-08 04:08] LABS: ALBUMIN 2.8 GM/DL (3.2-5.2); BILIRUBIN,TOTAL 1.5 MG/DL (0.2-1.0); CALCIUM LEVEL 8.4 MG/DL (8.8-10.2); CREATININE FOR GFR 1.43 MG/DL (0.70-1.30); POTASSIUM SERUM 4.6 MEQ/L (3.5-5.1); TOTAL PROTEIN 5.9 GM/DL (6.4-8.2)
[2021-09-08] MEDS: PIPERACILLIN/TAZOBACTAM SOD 3.375 GM in D5W MINI-BAG PLUS 100 ML IV SCH ×2 (04:49→08:06)
[2021-09-08] MEDS ORDERED: GABAPENTIN 300 MG CAP PO PRN (07:40)
[2021-09-08] MEDS ORDERED: AMIODARONE HCL 150 MG in IV 1 EA IV STA (07:41)
[2021-09-08] MEDS: ATORVASTATIN 20 MG TAB PO SCH (08:03)
[2021-09-08] MEDS: PANTOPRAZOLE 40MG TAB (PROTONIX) PO SCH (08:04)
[2021-09-08] MEDS: traMADol 50 MG TAB PO SCH ×3 (08:05→23:24)
[2021-09-08] MEDS: METOPROLOL TART 25 MG TABLET PO SCH ×3 (08:24→17:45)
[2021-09-08] MEDS ORDERED: PNEUMOCOCCAL VACCINE 0.5ML SYRINGE (PNEUMOVAX 23) IM ONE (09:00)
[2021-09-08] MEDS ORDERED: ASPIRIN 81MG ENTERIC TABLET PO SCH (09:00)
[2021-09-08] MEDS ORDERED: FONDAPARINUX SODIUM 2.5 MG/0.5 ML SYR (J1652 PER 0.5MG) SC SCH (09:00)
[2021-09-08 10:55] LABS: HEPATITIS B CORE ANTIBODY IGM NEGATIVE (NEGATIVE); HEPATITIS B SURFACE ANTIGEN NEGATIVE (NEGATIVE); HEPATITIS C VIRUS ABY INDEX 0.1 INDEX (<0.8)
[2021-09-08] MEDS ORDERED: PIPERACILLIN/TAZOBACTAM SOD 3.375 GM in D5W MINI-BAG PLUS 50 ML IV SCH (15:00)
[2021-09-08] MEDS ORDERED: AZITHROMYCIN INJ 500 MG, VIAL MATE ADAPTER 1 EACH in NS 250 ML IV SCH ×2 (18:00→20:00)
[2021-09-08 18:43] LABS: CALCIUM LEVEL 8.4 MG/DL (8.8-10.2); CREATININE FOR GFR 1.65 MG/DL (0.70-1.30); GLOMERULAR FILTRATION RATE 42.4 (>35); POTASSIUM SERUM 4.7 MEQ/L (3.5-5.1)
[2021-09-08] MEDS ORDERED: LIDOCAINE VISCOUS 2% SOLN 15ML UDC As Ordered ONE (19:09)
[2021-09-08] MEDS ORDERED: CETACAINE SPRAY 5GM As Ordered ONE (19:09)
[2021-09-08] MEDS ORDERED: fentaNYL 100 MCG/2 ML INJECTION As Ordered ONE (19:11)
[2021-09-08] MEDS ORDERED: propofoL 200 MG/20 ML VIAL As Ordered ONE (19:11)
[2021-09-08] MEDS ORDERED: ePHEDrine SULFATE 25 MG/5 ML(5MG/ML) SYRINGE As Ordered ONE (19:56)
[2021-09-08] MEDS ORDERED: PHENYLephrine 500MCG 5ML (100MCG/ML) SYRINGE As Ordered ONE (19:56)
[2021-09-08] MEDS ORDERED: ATROPINE SULF 1MG/10ML SYRINGE (J0461) As Ordered ONE (19:57)
[2021-09-08] MEDS ORDERED: PIPERACILLIN/TAZOBACTAM SOD 4.5 GM in D5W MINI-BAG PLUS 50 ML IV SCH (21:00)
[2021-09-08] MEDS: PIPERACILLIN/TAZOBACTAM SOD 4.5 GM in D5W MINI-BAG PLUS 50 ML IV SCH (23:24)
[2021-09-09] VITALS (23 sets, daily range): BP systolic 98–139; BP diastolic 49–80; O2SAT 98–100
[2021-09-09] MEDS: NS 1,000 ML IV SCH ×2 (00:18→04:30)
[2021-09-09] MEDS: PIPERACILLIN/TAZOBACTAM SOD 4.5 GM in D5W MINI-BAG PLUS 50 ML IV SCH ×3 (05:30→20:15)
[2021-09-09 05:33] LABS: HEMATOCRIT 32.2 % (42.0-52.0); HEMOGLOBIN 10.6 g/dl (13.5-17.5); MEAN CORPUSCULAR HEMOGLOBIN 31.6 pg (27.0-33.0); MEAN CORPUSCULAR HGB CONC 32.9 g/dl (32.0-36.5); MEAN CORPUSCULAR VOLUME 96.1 fl (80.0-96.0); RED BLOOD COUNT 3.35 10^6/uL (4.30-6.10); WHITE BLOOD COUNT 13.5 10^3/uL (4.0-10.0)
[2021-09-09 05:39] LABS: PLATELET COUNT, AUTOMATED 71 10^3/uL (150-450)
[2021-09-09 05:55] LABS: ALBUMIN 2.4 GM/DL (3.2-5.2); BILIRUBIN,TOTAL 1.9 MG/DL (0.2-1.0); CALCIUM LEVEL 8.1 MG/DL (8.8-10.2); CREATININE FOR GFR 1.72 MG/DL (0.70-1.30); GLOMERULAR FILTRATION RATE 40.4 (>35); POTASSIUM SERUM 5.1 MEQ/L (3.5-5.1); TOTAL PROTEIN 5.3 GM/DL (6.4-8.2)
[2021-09-09] MEDS: METOPROLOL TART 25 MG TABLET PO SCH ×5 (06:00→23:36)
[2021-09-09] MEDS: PANTOPRAZOLE 40MG TAB (PROTONIX) PO SCH (09:20)
[2021-09-09] MEDS: APIXABAN 5 MG TAB (ELIQUIS) PO SCH ×2 (09:20→20:14)
[2021-09-09] MEDS: ATORVASTATIN 20 MG TAB PO SCH (09:20)
[2021-09-09] MEDS: traMADol 50 MG TAB PO SCH ×3 (09:22→20:14)
[2021-09-09 16:16] LABS: C REACTIVE PROTEIN QUANTITATIV 11.1 MG/DL (0.00-0.30)
[2021-09-09 17:11] LABS: MYCOPLASMA PNEUMONIAE IgG 431 U/mL (0-99); MYCOPLASMA PNEUMONIAE IgM <770 U/mL (0-769)
[2021-09-10] VITALS (23 sets, daily range): BP systolic 113–155; BP diastolic 59–83
[2021-09-10 04:30] LABS: HEMATOCRIT 33.8 % (42.0-52.0); HEMOGLOBIN 11.2 g/dl (13.5-17.5); MEAN CORPUSCULAR HEMOGLOBIN 31.7 pg (27.0-33.0); MEAN CORPUSCULAR HGB CONC 33.1 g/dl (32.0-36.5); MEAN CORPUSCULAR VOLUME 95.8 fl (80.0-96.0); RED BLOOD COUNT 3.53 10^6/uL (4.30-6.10); WHITE BLOOD COUNT 12.5 10^3/uL (4.0-10.0)
[2021-09-10 04:32] LABS: PLATELET COUNT, AUTOMATED 82 10^3/uL (150-450)
[2021-09-10 04:46] LABS: ALBUMIN 2.3 GM/DL (3.2-5.2); BILIRUBIN,TOTAL 1.5 MG/DL (0.2-1.0); CREATININE FOR GFR 1.25 MG/DL (0.70-1.30); GLOMERULAR FILTRATION RATE 58.4 (>35); POTASSIUM SERUM 4.9 MEQ/L (3.5-5.1); TOTAL PROTEIN 5.4 GM/DL (6.4-8.2)
[2021-09-10 04:59] LABS: ERYTHROCYTE SEDIMENTATION RATE 30 mm/hr (0-20)
[2021-09-10] MEDS: PIPERACILLIN/TAZOBACTAM SOD 4.5 GM in D5W MINI-BAG PLUS 50 ML IV SCH ×3 (04:59→20:24)
[2021-09-10] MEDS: METOPROLOL TART 25 MG TABLET PO SCH ×4 (05:04→23:00)
[2021-09-10] MEDS: ATORVASTATIN 20 MG TAB PO SCH (08:27)
[2021-09-10] MEDS: PANTOPRAZOLE 40MG TAB (PROTONIX) PO SCH (08:27)
[2021-09-10] MEDS: traMADol 50 MG TAB PO SCH ×3 (08:28→20:23)
[2021-09-10] MEDS: APIXABAN 5 MG TAB (ELIQUIS) PO SCH ×2 (08:28→20:23)
[2021-09-10] MEDS: COSOPT OCUMETER PLUS 10ML (DORZOLAMIDE/TIMOLOL) OU SCH ×2 (09:00→20:25)
[2021-09-10] MEDS: METOCLOPRAMIDE INJ 10MG/2ML VIAL (J2765 PER 1) IV PRN ×2 (11:44→20:24)
[2021-09-10] MEDS: allopurinoL 300 MG TAB PO SCH (13:31)
[2021-09-10 15:09] LABS: BODY FLUID CULTURE Not indicated. (.); LEGIONELLA ANTIGEN URINE Negative (Negative); ORGANISM ID Not indicated. (.); SPECIMEN SOURCE Urine (.); URINE STREP PNEUMONIAE ANTIGEN Negative (Negative)
[2021-09-10] MEDS: LATANOPROST 0.005% OPHTH SOLN 2.5 ML OU SCH (20:25)
[2021-09-10] MEDS ORDERED: CYCLOSPORINE 0.05% OU SCH (21:00)
[2021-09-10] MEDS ORDERED: EYE OU SCH (21:00)
[2021-09-11] VITALS (13 sets, daily range): BP systolic 106–144; BP diastolic 53–85
[2021-09-11] MEDS: PIPERACILLIN/TAZOBACTAM SOD 4.5 GM in D5W MINI-BAG PLUS 50 ML IV SCH ×3 (04:30→20:39)
[2021-09-11] MEDS: METOPROLOL TART 25 MG TABLET PO SCH ×4 (05:29→23:34)
[2021-09-11 06:10] LABS: HEMATOCRIT 32.8 % (42.0-52.0); HEMOGLOBIN 10.7 g/dl (13.5-17.5); MEAN CORPUSCULAR HEMOGLOBIN 31.5 pg (27.0-33.0); MEAN CORPUSCULAR HGB CONC 32.6 g/dl (32.0-36.5); MEAN CORPUSCULAR VOLUME 96.5 fl (80.0-96.0); WHITE BLOOD COUNT 9.2 10^3/uL (4.0-10.0)
[2021-09-11 06:16] LABS: PLATELET COUNT, AUTOMATED 82 10^3/uL (150-450)
[2021-09-11 06:30] LABS: ALBUMIN 2.1 GM/DL (3.2-5.2); ALT/SGPT 363 U/L (12-78); BILIRUBIN,TOTAL 1.5 MG/DL (0.2-1.0); BLOOD UREA NITROGEN 27 MG/DL (7-18); CALCIUM LEVEL 7.9 MG/DL (8.8-10.2); CARBON DIOXIDE LEVEL 27 MEQ/L (21-32); CHLORIDE LEVEL 101 MEQ/L (98-107); CREATININE FOR GFR 0.94 MG/DL (0.70-1.30); GLOMERULAR FILTRATION RATE > 60.0 (>35); GLUCOSE, FASTING 96 MG/DL (70-100); POTASSIUM SERUM 4.6 MEQ/L (3.5-5.1); SODIUM LEVEL 134 MEQ/L (136-145); TOTAL PROTEIN 5.1 GM/DL (6.4-8.2)
[2021-09-11] MEDS: ATORVASTATIN 20 MG TAB PO SCH (08:16)
[2021-09-11] MEDS: APIXABAN 5 MG TAB (ELIQUIS) PO SCH ×2 (08:17→20:41)
[2021-09-11] MEDS: PANTOPRAZOLE 40MG VIAL (C9113 PER 1) IV SCH (08:17)
[2021-09-11] MEDS: traMADol 50 MG TAB PO SCH ×3 (08:17→20:42)
[2021-09-11] MEDS: allopurinoL 300 MG TAB PO SCH (08:17)
[2021-09-11] MEDS: COSOPT OCUMETER PLUS 10ML (DORZOLAMIDE/TIMOLOL) OU SCH ×2 (08:17→20:40)
[2021-09-11] MEDS: METOCLOPRAMIDE INJ 10MG/2ML VIAL (J2765 PER 1) IV PRN (08:18)
[2021-09-11] MEDS: ONDANSETRON 4MG/2ML VIAL IV PRN (10:16)
[2021-09-11 16:20] LABS: CHLAMYDIA PNEUMONIAE IgM <1:10 (Neg:<1:10)
[2021-09-11] MEDS ORDERED: BACLOFEN 10 MG TAB PO ONE (17:15)
[2021-09-11] MEDS: LATANOPROST 0.005% OPHTH SOLN 2.5 ML OU SCH (20:40)
[2021-09-11] MEDS: FINASTERIDE 5 MG TAB PO SCH (20:41)
[2021-09-11] MEDS: TAMSULOSIN 0.4 MG CAP PO SCH (20:42)
[2021-09-12] VITALS (9 sets, daily range): BP systolic 122–184; BP diastolic 63–87
[2021-09-12] MEDS: PIPERACILLIN/TAZOBACTAM SOD 4.5 GM in D5W MINI-BAG PLUS 50 ML IV SCH (04:42)
[2021-09-12 05:48] LABS: BASO % 0.1 % (0.0-1.0); EOS # 0.1 10^3/uL (0.0-0.5); EOS % 1.5 % (0.0-3.0); HEMATOCRIT 34.2 % (42.0-52.0); HEMOGLOBIN 11.3 g/dl (13.5-17.5); LYMPH # 0.8 10^3/uL (1.5-5.0); LYMPH % 9.3 % (24.0-44.0); MEAN CORPUSCULAR HEMOGLOBIN 31.7 pg (27.0-33.0); MEAN CORPUSCULAR VOLUME 95.8 fl (80.0-96.0); MONO % 11.9 % (2.0-8.0); NEUTROPHILS # 6.3 10^3/uL (1.5-8.5); NEUTROPHILS % 76.7 % (36.0-66.0); PLATELET COUNT, AUTOMATED 100 10^3/uL (150-450); RED BLOOD COUNT 3.57 10^6/uL (4.30-6.10); WHITE BLOOD COUNT 8.2 10^3/uL (4.0-10.0)
[2021-09-12] MEDS: METOPROLOL TART 25 MG TABLET PO SCH (06:00)
[2021-09-12 06:13] LABS: ALBUMIN 1.9 GM/DL (3.2-5.2); ALT/SGPT 329 U/L (12-78); BILIRUBIN,TOTAL 1.2 MG/DL (0.2-1.0); BLOOD UREA NITROGEN 24 MG/DL (7-18); CALCIUM LEVEL 8.1 MG/DL (8.8-10.2); CARBON DIOXIDE LEVEL 29 MEQ/L (21-32); CHLORIDE LEVEL 103 MEQ/L (98-107); CREATININE FOR GFR 0.91 MG/DL (0.70-1.30); GLOMERULAR FILTRATION RATE > 60.0 (>35); GLUCOSE, FASTING 102 MG/DL (70-100); MAGNESIUM LEVEL 1.9 MG/DL (1.8-2.4); SODIUM LEVEL 137 MEQ/L (136-145); TOTAL PROTEIN 5.7 GM/DL (6.4-8.2)
[2021-09-12] MEDS ORDERED: amLODIPine 5 MG TAB PO SCH (09:00)
[2021-09-12] MEDS: APIXABAN 5 MG TAB (ELIQUIS) PO SCH ×2 (09:17→20:16)
[2021-09-12] MEDS: allopurinoL 300 MG TAB PO SCH (09:17)
[2021-09-12] MEDS: ATORVASTATIN 20 MG TAB PO SCH (09:17)
[2021-09-12] MEDS: TAMSULOSIN 0.4 MG CAP PO SCH (09:18)
[2021-09-12] MEDS: traMADol 50 MG TAB PO SCH ×3 (09:20→20:17)
[2021-09-12] MEDS: PANTOPRAZOLE 40MG VIAL (C9113 PER 1) IV SCH (09:20)
[2021-09-12] MEDS: COSOPT OCUMETER PLUS 10ML (DORZOLAMIDE/TIMOLOL) OU SCH ×2 (09:21→20:17)
[2021-09-12] MEDS: ENTRESTO 24-26MG TABLET (SACUBITRIL/VALSARTAN) PO SCH ×2 (13:18→20:16)
[2021-09-12] MEDS: FINASTERIDE 5 MG TAB PO SCH (20:16)
[2021-09-12] MEDS: LATANOPROST 0.005% OPHTH SOLN 2.5 ML OU SCH (20:17)
[2021-09-13 04:00] VITALS: BP 138/76
[2021-09-13 08:17] VITALS: BP 150/77
[2021-09-13] MEDS: PANTOPRAZOLE 40MG VIAL (C9113 PER 1) IV SCH (08:34)
[2021-09-13] MEDS: APIXABAN 5 MG TAB (ELIQUIS) PO SCH ×2 (08:34→21:01)
[2021-09-13] MEDS: ATORVASTATIN 20 MG TAB PO SCH (08:35)
[2021-09-13] MEDS: ENTRESTO 24-26MG TABLET (SACUBITRIL/VALSARTAN) PO SCH ×2 (08:35→21:01)
[2021-09-13] MEDS: COSOPT OCUMETER PLUS 10ML (DORZOLAMIDE/TIMOLOL) OU SCH ×2 (08:36→21:02)
[2021-09-13] MEDS: allopurinoL 300 MG TAB PO SCH (08:36)
[2021-09-13] MEDS: TAMSULOSIN 0.4 MG CAP PO SCH (08:36)
[2021-09-13 08:53] LABS: BASO % 0.1 % (0.0-1.0); EOS # 0.2 10^3/uL (0.0-0.5); EOS % 2.1 % (0.0-3.0); HEMATOCRIT 37.7 % (42.0-52.0); HEMOGLOBIN 12.5 g/dl (13.5-17.5); LYMPH # 0.7 10^3/uL (1.5-5.0); LYMPH % 7.9 % (24.0-44.0); MEAN CORPUSCULAR HEMOGLOBIN 31.4 pg (27.0-33.0); MEAN CORPUSCULAR HGB CONC 33.2 g/dl (32.0-36.5); MEAN CORPUSCULAR VOLUME 94.7 fl (80.0-96.0); MONO # 1.2 10^3/uL (0.0-0.8); MONO % 14.1 % (2.0-8.0); NEUTROPHILS # 6.6 10^3/uL (1.5-8.5); NEUTROPHILS % 75.3 % (36.0-66.0); PLATELET COUNT, AUTOMATED 129 10^3/uL (150-450); RED BLOOD COUNT 3.98 10^6/uL (4.30-6.10); WHITE BLOOD COUNT 8.8 10^3/uL (4.0-10.0)
[2021-09-13] MEDS: traMADol 50 MG TAB PO SCH ×3 (09:00→21:02)
[2021-09-13 09:25] LABS: ALBUMIN 1.8 GM/DL (3.2-5.2); ALT/SGPT 261 U/L (12-78); BILIRUBIN,TOTAL 1.4 MG/DL (0.2-1.0); BLOOD UREA NITROGEN 18 MG/DL (7-18); CALCIUM LEVEL 7.9 MG/DL (8.8-10.2); CARBON DIOXIDE LEVEL 29 MEQ/L (21-32); CHLORIDE LEVEL 106 MEQ/L (98-107); CREATININE FOR GFR 0.77 MG/DL (0.70-1.30); GLOMERULAR FILTRATION RATE > 60.0 (>35); GLUCOSE, FASTING 91 MG/DL (70-100); MAGNESIUM LEVEL 1.9 MG/DL (1.8-2.4); POTASSIUM SERUM 4.4 MEQ/L (3.5-5.1); SODIUM LEVEL 139 MEQ/L (136-145); TOTAL PROTEIN 4.9 GM/DL (6.4-8.2)
[2021-09-13 12:00] VITALS: BP 142/73
[2021-09-13] MEDS ORDERED: GI COCKTAIL 50ML BTL(HYOSCYAMINE/MAALOX/LIDOCAINE VISCOUS)(1:3:1) PO PRN (12:05)
[2021-09-13] MEDS ORDERED: HALOPERIDOL 0.25MG PER 1/2 TABLET PO PRN (12:10)
[2021-09-13 16:10] VITALS: BP 163/77
[2021-09-13 20:00] VITALS: BP 163/79
[2021-09-13] MEDS: FINASTERIDE 5 MG TAB PO SCH (21:01)
[2021-09-13] MEDS: LATANOPROST 0.005% OPHTH SOLN 2.5 ML OU SCH (21:03)
[2021-09-14] VITALS: BP 157/78
[2021-09-14 04:00] VITALS: BP 141/68
[2021-09-14 07:51] VITALS: BP 174/88
[2021-09-14] MEDS: traMADol 50 MG TAB PO SCH ×2 (09:00→16:00)
[2021-09-14] MEDS: allopurinoL 300 MG TAB PO SCH (09:26)
[2021-09-14] MEDS: APIXABAN 5 MG TAB (ELIQUIS) PO SCH ×2 (09:26→22:17)
[2021-09-14] MEDS: COSOPT OCUMETER PLUS 10ML (DORZOLAMIDE/TIMOLOL) OU SCH ×2 (09:26→22:17)
[2021-09-14] MEDS: ENTRESTO 24-26MG TABLET (SACUBITRIL/VALSARTAN) PO SCH ×2 (09:26→22:17)
[2021-09-14] MEDS: ATORVASTATIN 20 MG TAB PO SCH (09:26)
[2021-09-14] MEDS: TAMSULOSIN 0.4 MG CAP PO SCH (09:26)
[2021-09-14] MEDS: PANTOPRAZOLE 40MG VIAL (C9113 PER 1) IV SCH (09:26)
[2021-09-14 12:00] VITALS: BP 148/76
[2021-09-14 15:40] VITALS: BP 152/80
[2021-09-14 20:00] VITALS: BP 156/70
[2021-09-14] MEDS: FINASTERIDE 5 MG TAB PO SCH (22:16)
[2021-09-14] MEDS: LATANOPROST 0.005% OPHTH SOLN 2.5 ML OU SCH (22:17)
[2021-09-15] VITALS: BP 145/80
[2021-09-15 04:00] VITALS: BP 115/62
[2021-09-15 07:01] VITALS: BP 156/73
[2021-09-15] MEDS: TAMSULOSIN 0.4 MG CAP PO SCH (09:00)
[2021-09-15] MEDS: ENTRESTO 24-26MG TABLET (SACUBITRIL/VALSARTAN) PO SCH (09:01)
[2021-09-15] MEDS: PANTOPRAZOLE 40MG VIAL (C9113 PER 1) IV SCH (09:01)
[2021-09-15] MEDS: APIXABAN 5 MG TAB (ELIQUIS) PO SCH (09:01)
[2021-09-15] MEDS: COSOPT OCUMETER PLUS 10ML (DORZOLAMIDE/TIMOLOL) OU SCH (09:01)
[2021-09-15] MEDS: allopurinoL 300 MG TAB PO SCH (09:01)
[2021-09-15] MEDS: ATORVASTATIN 20 MG TAB PO SCH (09:01)
[2021-09-15 12:05] LABS: BASO % 0.3 % (0.0-1.0); EOS # 0.1 10^3/uL (0.0-0.5); EOS % 0.6 % (0.0-3.0); HEMATOCRIT 42.9 % (42.0-52.0); HEMOGLOBIN 14.6 g/dl (13.5-17.5); LYMPH # 0.8 10^3/uL (1.5-5.0); LYMPH % 8.7 % (24.0-44.0); MEAN CORPUSCULAR VOLUME 91.1 fl (80.0-96.0); MONO # 0.9 10^3/uL (0.0-0.8); MONO % 9.3 % (2.0-8.0); NEUTROPHILS # 7.5 10^3/uL (1.5-8.5); NEUTROPHILS % 80.6 % (36.0-66.0); PLATELET COUNT, AUTOMATED 179 10^3/uL (150-450); RED BLOOD COUNT 4.71 10^6/uL (4.30-6.10); WHITE BLOOD COUNT 9.3 10^3/uL (4.0-10.0)
[2021-09-15 12:29] LABS: ERYTHROCYTE SEDIMENTATION RATE 41 mm/hr (0-20)
[2021-09-15 12:49] LABS: ALBUMIN 2.2 GM/DL (3.2-5.2); ALT/SGPT 205 U/L (12-78); BILIRUBIN,TOTAL 2.6 MG/DL (0.2-1.0); BLOOD UREA NITROGEN 14 MG/DL (7-18); C REACTIVE PROTEIN QUANTITATIV 5.88 MG/DL (0.00-0.30); CALCIUM LEVEL 8.3 MG/DL (8.8-10.2); CARBON DIOXIDE LEVEL 24 MEQ/L (21-32); CHLORIDE LEVEL 106 MEQ/L (98-107); CREATININE FOR GFR 0.71 MG/DL (0.70-1.30); GLOMERULAR FILTRATION RATE > 60.0 (>35); GLUCOSE, FASTING 111 MG/DL (70-100); MAGNESIUM LEVEL 1.9 MG/DL (1.8-2.4); POTASSIUM SERUM 4.5 MEQ/L (3.5-5.1); SODIUM LEVEL 137 MEQ/L (136-145); TOTAL PROTEIN 5.8 GM/DL (6.4-8.2)
[2021-09-15] MEDS ORDERED: ENTR1TAB PO (13:03)
[2021-09-15] MEDS ORDERED: FLOM0.4C39 PO (13:03)
[2021-09-15] MEDS ORDERED: PANT40TA29 PO (13:03)
[2021-09-15] MEDS ORDERED: HALO0.5H PO (13:03)
[2021-09-15] MEDS ORDERED: ELIQ5TAB PO (13:03)
== END 2021-09-15 15:20 | DRG 871 ==
LOC: EDBD 16:27 → M ED 16:27 → M ED INP 19:49 → ENRESERV 22:39 → M PCU 23:42
PROVIDERS: ADMIT Internal Medicine; ATTEND Family Medicine
PROC: 5A2204Z Restoration of Cardiac Rhythm, Single (ICD-10-PCS; principal; 2021-09-08 17:00)
PROC: B246ZZ4 Ultrasonography of Right and Left Heart, Transesophageal (ICD-10-PCS; 2021-09-08 17:00)
DX: A41.9 Sepsis, unspecified organism (principal); J18.9 Pneumonia, unspecified organism; I50.33 Acute on chronic diastolic (congestive) heart failure; I21.4 Non-ST elevation (NSTEMI) myocardial infarction; N17.9 Acute kidney failure, unspecified; I82.411 Acute embolism and thrombosis of right femoral vein; I48.92 Unspecified atrial flutter; I11.0 Hypertensive heart disease with heart failure; M10.9 Gout, unspecified; M19.90 Unspecified osteoarthritis, unspecified site; I25.10 Atherosclerotic heart disease of native coronary artery without angina pectoris; Z95.5 Presence of coronary angioplasty implant and graft; N40.0 Benign prostatic hyperplasia without lower urinary tract symptoms; I45.10 Unspecified right bundle-branch block; G62.9 Polyneuropathy, unspecified; K21.9 Gastro-esophageal reflux disease without esophagitis; I34.0 Nonrheumatic mitral (valve) insufficiency; R00.0 Tachycardia, unspecified; Z79.82 Long term (current) use of aspirin; Z79.899 Other long term (current) drug therapy; Z88.2 Allergy status to sulfonamides; Z88.8 Allergy status to other drugs, medicaments and biological substances; R74.01 Elevation of levels of liver transaminase levels; Z66 Do not resuscitate; R65.20 Severe sepsis without septic shock; D50.0 Iron deficiency anemia secondary to blood loss (chronic); D69.6 Thrombocytopenia, unspecified; Z72.3 Lack of physical exercise; Z90.49 Acquired absence of other specified parts of digestive tract

== ENCOUNTER 2021-09-15 11:22 | Inpatient (IN) | payer MEDICARE, OTHER ==
[~2021-09-15] VITALS: Ht 175.3 cm; Wt 75.8 kg
[~2021-09-15 11:22] MED LIST changes: +ALLO300T2 PA; +ASPI81TA26 PO; +IBUP-1022 PO; +REST0.05 OU; +TRAM50TA2 PO
[2021-09-15] MEDS ORDERED: HALO0.5H PO (13:03)
[2021-09-15] MEDS ORDERED: FLOM0.4C39 PO (13:03)
[2021-09-15] MEDS ORDERED: PANT40TA29 PO (13:03)
[2021-09-15] MEDS ORDERED: ENTR1TAB PO (13:03)
[2021-09-15] MEDS ORDERED: ELIQ5TAB PO (13:03)
[2021-09-15] MEDS ORDERED: traMADol 50 MG TAB PO PRN (15:30)
[2021-09-15] MEDS ORDERED: METOCLOPRAMIDE 5 MG TAB PO PRN (15:30)
[2021-09-15] MEDS ORDERED: HALOPERIDOL 0.25MG PER 1/2 TABLET PO PRN (15:30)
[2021-09-15] MEDS ORDERED: ONDANSETRON 4 MG TAB PO PRN (15:30)
[2021-09-15] MEDS ORDERED: MIRALAX *UNIT DOSE* 17GM PACKET PO PRN (15:30)
[2021-09-15 15:58] VITALS: BP 142/70
[2021-09-15 20:00] VITALS: BP 131/69
[2021-09-15] MEDS ORDERED: SENNA 8.6 MG TAB (SENOKOT) PO SCH (21:00)
[2021-09-15] MEDS ORDERED: FINASTERIDE 5 MG TAB PO SCH (21:00)
[2021-09-15] MEDS: EYE OU SCH (21:00)
[2021-09-15] MEDS ORDERED: APIXABAN 5 MG TAB (ELIQUIS) PO SCH ×2 (21:00)
[2021-09-15] MEDS ORDERED: ENTER DRUG NAME HERE (PATIENT'S OWN MED) OU SCH (21:00)
[2021-09-15] MEDS: CYCLOSPORINE 0.05% OU SCH (21:00)
[2021-09-15] MEDS: PANTOPRAZOLE 40MG TAB (PROTONIX) PO SCH (21:35)
[2021-09-15] MEDS: DOCUSATE SODIUM 100MG CAPSULE PO SCH (21:35)
[2021-09-15] MEDS: ENTRESTO 24-26MG TABLET (SACUBITRIL/VALSARTAN) PO SCH (21:35)
[2021-09-15] MEDS: ACETAMINOPHEN TAB 650MG DOSE (2X325MG) PO PRN (21:37)
[2021-09-15] MEDS: COSOPT OCUMETER PLUS 10ML (DORZOLAMIDE/TIMOLOL) OU SCH (21:37)
[2021-09-15] MEDS: REMEDY PHYTOPLEX Z-GUARD PASTE 113GM TUBE (FROM STOREROOM PRODUCT) TOP SCH (21:38)
[2021-09-16 06:00] VITALS: BP 154/88
[2021-09-16 07:16] LABS: BASO % 0.4 % (0.0-1.0); EOS # 0.1 10^3/uL (0.0-0.5); EOS % 1.6 % (0.0-3.0); HEMATOCRIT 38.1 % (42.0-52.0); LYMPH # 1.3 10^3/uL (1.5-5.0); LYMPH % 16.3 % (24.0-44.0); MEAN CORPUSCULAR HEMOGLOBIN 30.5 pg (27.0-33.0); MEAN CORPUSCULAR HGB CONC 32.8 g/dl (32.0-36.5); MEAN CORPUSCULAR VOLUME 92.9 fl (80.0-96.0); MONO # 1.1 10^3/uL (0.0-0.8); MONO % 13.2 % (2.0-8.0); NEUTROPHILS # 5.6 10^3/uL (1.5-8.5); NEUTROPHILS % 67.9 % (36.0-66.0); PLATELET COUNT, AUTOMATED 152 10^3/uL (150-450); WHITE BLOOD COUNT 8.2 10^3/uL (4.0-10.0)
[2021-09-16 07:20] LABS: HEMOGLOBIN 12.5 g/dl (13.5-17.5)
[2021-09-16 07:44] LABS: BLOOD UREA NITROGEN 16 MG/DL (7-18); CREATININE FOR GFR 0.81 MG/DL (0.70-1.30); GLUCOSE, FASTING 92 MG/DL (70-100)
[2021-09-16 07:45] LABS: ALBUMIN 1.9 GM/DL (3.2-5.2); ALT/SGPT 172 U/L (12-78); BILIRUBIN,TOTAL 1.9 MG/DL (0.2-1.0); CALCIUM LEVEL 8.3 MG/DL (8.8-10.2); CARBON DIOXIDE LEVEL 26 MEQ/L (21-32); CHLORIDE LEVEL 107 MEQ/L (98-107); GLOMERULAR FILTRATION RATE > 60.0 (>35); POTASSIUM SERUM 4.5 MEQ/L (3.5-5.1); SODIUM LEVEL 139 MEQ/L (136-145); TOTAL PROTEIN 5.2 GM/DL (6.4-8.2)
[2021-09-16] MEDS ORDERED: APIXABAN 5 MG TAB (ELIQUIS) PO SCH (09:00)
[2021-09-16] MEDS: EYE OU SCH (09:00)
[2021-09-16] MEDS ORDERED: TAMSULOSIN 0.4 MG CAP PO SCH (09:00)
[2021-09-16] MEDS ORDERED: ATORVASTATIN 20 MG TAB PO SCH (09:00)
[2021-09-16] MEDS ORDERED: ASPIRIN 81MG ENTERIC TABLET PO SCH (09:00)
[2021-09-16] MEDS: CYCLOSPORINE 0.05% OU SCH (09:00)
[2021-09-16] MEDS ORDERED: allopurinoL 300 MG TAB PO SCH (09:00)
[2021-09-16] MEDS: DOCUSATE SODIUM 100MG CAPSULE PO SCH (09:45)
[2021-09-16] MEDS: PANTOPRAZOLE 40MG TAB (PROTONIX) PO SCH (09:45)
[2021-09-16] MEDS: ENTRESTO 24-26MG TABLET (SACUBITRIL/VALSARTAN) PO SCH (09:45)
[2021-09-16] MEDS: COSOPT OCUMETER PLUS 10ML (DORZOLAMIDE/TIMOLOL) OU SCH (09:46)
[2021-09-16] MEDS: ACETAMINOPHEN TAB 650MG DOSE (2X325MG) PO PRN (09:46)
[2021-09-16] MEDS: REMEDY PHYTOPLEX Z-GUARD PASTE 113GM TUBE (FROM STOREROOM PRODUCT) TOP SCH ×2 (09:47→16:45)
[2021-09-16 14:20] VITALS: BP 76/52
[2021-09-16 14:30] VITALS: BP 84/58
[2021-09-16] MEDS ORDERED: HOME MED LIST COMPLETE! XX SCH (14:35)
[2021-09-16] MEDS ORDERED: NS 1,000 ML IV ONE ×2 (14:35→16:10)
[2021-09-16] MEDS ORDERED: DIGOXIN 0.25 MG TAB PO SCH (15:00)
[2021-09-16 15:15] VITALS: BP 86/57
[2021-09-16 15:59] LABS: HEMATOCRIT 35.6 % (42.0-52.0); HEMOGLOBIN 11.9 g/dl (13.5-17.5); MEAN CORPUSCULAR HEMOGLOBIN 31.2 pg (27.0-33.0); MEAN CORPUSCULAR HGB CONC 33.4 g/dl (32.0-36.5); MEAN CORPUSCULAR VOLUME 93.2 fl (80.0-96.0); PLATELET COUNT, AUTOMATED 156 10^3/uL (150-450); RED BLOOD COUNT 3.82 10^6/uL (4.30-6.10); WHITE BLOOD COUNT 7.4 10^3/uL (4.0-10.0)
[2021-09-16 16:07] VITALS: BP 87/58
[2021-09-16 16:40] LABS: BLOOD UREA NITROGEN 20 MG/DL (7-18); CREATININE FOR GFR 1.02 MG/DL (0.70-1.30); GLUCOSE, FASTING 105 MG/DL (70-100)
[2021-09-16 16:41] LABS: CALCIUM LEVEL 7.8 MG/DL (8.8-10.2); CARBON DIOXIDE LEVEL 24 MEQ/L (21-32); CHLORIDE LEVEL 111 MEQ/L (98-107); GLOMERULAR FILTRATION RATE > 60.0 (>35); POTASSIUM SERUM 4.6 MEQ/L (3.5-5.1); SODIUM LEVEL 141 MEQ/L (136-145)
[2021-09-16 17:08] VITALS: BP 98/68
[2021-09-16] MEDS ORDERED: DIGOXIN INJ 0.5 MG/2 ML AMP (J1160) IV ONE (18:00)
[2021-09-17] MEDS ORDERED: DIGOXIN INJ 0.5 MG/2 ML AMP (J1160) IV SCH
[2021-09-17] MEDS ORDERED: UNRESOLVED PATIENT OWN MED ORDER XX SCH (00:01)
[2021-09-18] MEDS ORDERED: COLA100C5 PO (14:43)
[2021-09-18] MEDS ORDERED: FINA5TAB2 PO (14:43)
[2021-09-18] MEDS ORDERED: LOPR1TAB6 PO (14:43)
[2021-09-18] MEDS ORDERED: ELIQ5TAB PO (14:43)
[2021-09-18] MEDS ORDERED: SENN18TA PO (14:43)
[2021-09-18] MEDS ORDERED: DIGO0.253 PO (14:43)
[2021-09-18 17:30] VITALS: BP 162/83
[2021-09-18 20:19] VITALS: BP 123/61
[2021-09-18] MEDS: COSOPT OCUMETER PLUS 10ML (DORZOLAMIDE/TIMOLOL) OU SCH (21:00)
[2021-09-18] MEDS: LATANOPROST 0.005% OPHTH SOLN 2.5 ML OU SCH (21:20)
[2021-09-18] MEDS: APIXABAN 5 MG TAB (ELIQUIS) PO SCH (21:21)
[2021-09-18] MEDS: METOPROLOL TART 50 MG TAB PO SCH (21:21)
[2021-09-18] MEDS: DOCUSATE SODIUM 100MG CAPSULE PO SCH (21:21)
[2021-09-18] MEDS: SENNA 8.6 MG TAB (SENOKOT) PO SCH (21:21)
[2021-09-18] MEDS: FINASTERIDE 5 MG TAB PO SCH (21:21)
[2021-09-19 05:40] VITALS: BP 144/82
[2021-09-19 07:46] LABS: HEMOGLOBIN 12.2 g/dl (13.5-17.5); MEAN CORPUSCULAR HEMOGLOBIN 31.6 pg (27.0-33.0); MEAN CORPUSCULAR HGB CONC 33.9 g/dl (32.0-36.5); MEAN CORPUSCULAR VOLUME 93.3 fl (80.0-96.0); PLATELET COUNT, AUTOMATED 155 10^3/uL (150-450); RED BLOOD COUNT 3.86 10^6/uL (4.30-6.10); WHITE BLOOD COUNT 7.1 10^3/uL (4.0-10.0)
[2021-09-19 08:16] LABS: ALBUMIN 1.9 GM/DL (3.2-5.2); ALT/SGPT 110 U/L (12-78); BILIRUBIN,TOTAL 1.6 MG/DL (0.2-1.0); BLOOD UREA NITROGEN 15 MG/DL (7-18); CARBON DIOXIDE LEVEL 26 MEQ/L (21-32); CHLORIDE LEVEL 107 MEQ/L (98-107); CREATININE FOR GFR 0.74 MG/DL (0.70-1.30); GLOMERULAR FILTRATION RATE > 60.0 (>35); GLUCOSE, FASTING 90 MG/DL (70-100); POTASSIUM SERUM 4.3 MEQ/L (3.5-5.1); SODIUM LEVEL 140 MEQ/L (136-145); TOTAL PROTEIN 5.1 GM/DL (6.4-8.2)
[2021-09-19] MEDS ORDERED: DIGOXIN 0.25 MG TAB PO SCH (09:00)
[2021-09-19] MEDS: DOCUSATE SODIUM 100MG CAPSULE PO SCH ×2 (10:05→20:09)
[2021-09-19] MEDS: OMEGA-3 1000MG CAPSULE PO SCH (10:05)
[2021-09-19] MEDS: APIXABAN 5 MG TAB (ELIQUIS) PO SCH ×2 (10:08→20:10)
[2021-09-19] MEDS: allopurinoL 300 MG TAB PO SCH (10:08)
[2021-09-19] MEDS: METOPROLOL TART 50 MG TAB PO SCH ×3 (10:08→23:46)
[2021-09-19] MEDS: ATORVASTATIN 20 MG TAB PO SCH (10:09)
[2021-09-19] MEDS: ASPIRIN 81MG ENTERIC TABLET PO SCH (10:09)
[2021-09-19] MEDS: PANTOPRAZOLE 40MG TAB (PROTONIX) PO SCH (10:09)
[2021-09-19 14:00] VITALS: BP 138/72
[2021-09-19] MEDS ORDERED: DIGOXIN 0.25 MG TAB PO STA (15:32)
[2021-09-19 20:00] VITALS: BP 137/73
[2021-09-19] MEDS: FINASTERIDE 5 MG TAB PO SCH (20:10)
[2021-09-19] MEDS: SENNA 8.6 MG TAB (SENOKOT) PO SCH (20:10)
[2021-09-19] MEDS: LATANOPROST 0.005% OPHTH SOLN 2.5 ML OU SCH (20:10)
[2021-09-19] MEDS: COSOPT OCUMETER PLUS 10ML (DORZOLAMIDE/TIMOLOL) OU SCH (20:46)
[2021-09-20] MEDS: METOPROLOL TART 50 MG TAB PO SCH ×4 (05:30→23:55)
[2021-09-20 06:00] VITALS: BP 147/86
[2021-09-20] MEDS: ACETAMINOPHEN TAB 650MG DOSE (2X325MG) PO PRN ×3 (06:41→20:30)
[2021-09-20] MEDS: allopurinoL 300 MG TAB PO SCH (08:56)
[2021-09-20] MEDS: APIXABAN 5 MG TAB (ELIQUIS) PO SCH ×2 (08:56→20:29)
[2021-09-20] MEDS: DIGOXIN 0.25 MG TAB PO SCH (08:56)
[2021-09-20] MEDS: ATORVASTATIN 20 MG TAB PO SCH (08:56)
[2021-09-20] MEDS: OMEGA-3 1000MG CAPSULE PO SCH (08:56)
[2021-09-20] MEDS: ASPIRIN 81MG ENTERIC TABLET PO SCH (08:56)
[2021-09-20] MEDS: DOCUSATE SODIUM 100MG CAPSULE PO SCH ×2 (08:56→20:29)
[2021-09-20] MEDS: PANTOPRAZOLE 40MG TAB (PROTONIX) PO SCH (08:56)
[2021-09-20] MEDS: COSOPT OCUMETER PLUS 10ML (DORZOLAMIDE/TIMOLOL) OU SCH ×2 (08:57→20:30)
[2021-09-20 11:01] VITALS: BP 150/87
[2021-09-20 14:00] VITALS: BP 122/64
[2021-09-20] MEDS: LIDOCAINE 5% (LIDODERM) PATCH TD SCH (14:17)
[2021-09-20 17:20] VITALS: BP 137/79
[2021-09-20 20:00] VITALS: BP 131/74
[2021-09-20] MEDS: FINASTERIDE 5 MG TAB PO SCH (20:29)
[2021-09-20] MEDS: SENNA 8.6 MG TAB (SENOKOT) PO SCH (20:29)
[2021-09-20] MEDS: **NOTE PATIENT COMMENT** MISC XX SCH (20:30)
[2021-09-20] MEDS: LATANOPROST 0.005% OPHTH SOLN 2.5 ML OU SCH (20:30)
[2021-09-21] MEDS: METOPROLOL TART 50 MG TAB PO SCH ×3 (05:17→17:21)
[2021-09-21 06:00] VITALS: BP 169/94
[2021-09-21 06:48] VITALS: BP 138/80
[2021-09-21] MEDS: ASPIRIN 81MG ENTERIC TABLET PO SCH (08:15)
[2021-09-21] MEDS: LIDOCAINE 5% (LIDODERM) PATCH TD SCH (08:15)
[2021-09-21] MEDS: OMEGA-3 1000MG CAPSULE PO SCH (08:15)
[2021-09-21] MEDS: APIXABAN 5 MG TAB (ELIQUIS) PO SCH ×2 (08:15→20:45)
[2021-09-21] MEDS: DIGOXIN 0.25 MG TAB PO SCH (08:15)
[2021-09-21] MEDS: ACETAMINOPHEN TAB 650MG DOSE (2X325MG) PO PRN ×2 (08:15→17:22)
[2021-09-21] MEDS: DOCUSATE SODIUM 100MG CAPSULE PO SCH ×2 (08:15→20:45)
[2021-09-21] MEDS: COSOPT OCUMETER PLUS 10ML (DORZOLAMIDE/TIMOLOL) OU SCH ×2 (08:15→20:49)
[2021-09-21] MEDS: ATORVASTATIN 20 MG TAB PO SCH (08:16)
[2021-09-21] MEDS: PANTOPRAZOLE 40MG TAB (PROTONIX) PO SCH (08:16)
[2021-09-21] MEDS: allopurinoL 300 MG TAB PO SCH (08:16)
[2021-09-21 11:50] VITALS: BP 135/79
[2021-09-21 14:00] VITALS: BP 135/73
[2021-09-21 17:19] VITALS: BP 160/74
[2021-09-21 20:00] VITALS: BP 132/79
[2021-09-21] MEDS: FINASTERIDE 5 MG TAB PO SCH (20:45)
[2021-09-21] MEDS: SENNA 8.6 MG TAB (SENOKOT) PO SCH (20:45)
[2021-09-21] MEDS: **NOTE PATIENT COMMENT** MISC XX SCH (20:47)
[2021-09-21] MEDS: LATANOPROST 0.005% OPHTH SOLN 2.5 ML OU SCH (20:48)
[2021-09-22] MEDS: METOPROLOL TART 50 MG TAB PO SCH ×4 (00:32→17:46)
[2021-09-22 06:00] VITALS: BP 169/85
[2021-09-22] MEDS: DOCUSATE SODIUM 100MG CAPSULE PO SCH ×2 (08:31→20:36)
[2021-09-22] MEDS: ASPIRIN 81MG ENTERIC TABLET PO SCH (08:31)
[2021-09-22] MEDS: APIXABAN 5 MG TAB (ELIQUIS) PO SCH ×2 (08:31→20:37)
[2021-09-22] MEDS: LIDOCAINE 5% (LIDODERM) PATCH TD SCH (08:32)
[2021-09-22] MEDS: allopurinoL 300 MG TAB PO SCH (08:32)
[2021-09-22] MEDS: OMEGA-3 1000MG CAPSULE PO SCH (08:32)
[2021-09-22] MEDS: ATORVASTATIN 20 MG TAB PO SCH (08:32)
[2021-09-22] MEDS: PANTOPRAZOLE 40MG TAB (PROTONIX) PO SCH (08:32)
[2021-09-22] MEDS: DIGOXIN 0.25 MG TAB PO SCH (08:32)
[2021-09-22] MEDS: COSOPT OCUMETER PLUS 10ML (DORZOLAMIDE/TIMOLOL) OU SCH (08:33)
[2021-09-22] MEDS ORDERED: AMIODARONE 200 MG TAB (PACERONE) PO SCH (09:00)
[2021-09-22 09:40] LABS: BASO % 0.3 % (0.0-1.0); EOS % 0.3 % (0.0-3.0); HEMATOCRIT 36.9 % (42.0-52.0); HEMOGLOBIN 12.4 g/dl (13.5-17.5); LYMPH # 0.9 10^3/uL (1.5-5.0); LYMPH % 9.1 % (24.0-44.0); MEAN CORPUSCULAR HEMOGLOBIN 30.8 pg (27.0-33.0); MEAN CORPUSCULAR HGB CONC 33.6 g/dl (32.0-36.5); MEAN CORPUSCULAR VOLUME 91.8 fl (80.0-96.0); MONO # 1.1 10^3/uL (0.0-0.8); MONO % 11.2 % (2.0-8.0); NEUTROPHILS # 7.5 10^3/uL (1.5-8.5); NEUTROPHILS % 78.7 % (36.0-66.0); PLATELET COUNT, AUTOMATED 212 10^3/uL (150-450); RED BLOOD COUNT 4.02 10^6/uL (4.30-6.10); WHITE BLOOD COUNT 9.5 10^3/uL (4.0-10.0)
[2021-09-22 11:55] LABS: BLOOD UREA NITROGEN 15 MG/DL (7-18); CALCIUM LEVEL 8.7 MG/DL (8.8-10.2); CARBON DIOXIDE LEVEL 27 MEQ/L (21-32); CHLORIDE LEVEL 102 MEQ/L (98-107); CREATININE FOR GFR 0.73 MG/DL (0.70-1.30); DIGOXIN LEVEL 4.5 NG/ML (0.5-2.0); GLOMERULAR FILTRATION RATE > 60.0 (>35); GLUCOSE, FASTING 102 MG/DL (70-100); POTASSIUM SERUM 4.4 MEQ/L (3.5-5.1); SODIUM LEVEL 135 MEQ/L (136-145)
[2021-09-22 14:00] VITALS: BP 113/68
[2021-09-22] MEDS: FINASTERIDE 5 MG TAB PO SCH (20:37)
[2021-09-22] MEDS: **NOTE PATIENT COMMENT** MISC XX SCH (20:37)
[2021-09-22] MEDS: LATANOPROST 0.005% OPHTH SOLN 2.5 ML OU SCH (20:37)
[2021-09-22] MEDS: SENNA 8.6 MG TAB (SENOKOT) PO SCH (20:37)
[2021-09-22 20:55] VITALS: BP 137/66
[2021-09-23] MEDS: COSOPT OCUMETER PLUS 10ML (DORZOLAMIDE/TIMOLOL) OU SCH ×3 (00:48→20:21)
[2021-09-23] MEDS: METOPROLOL TART 50 MG TAB PO SCH ×5 (05:06→23:24)
[2021-09-23 06:19] VITALS: BP 140/90
[2021-09-23] MEDS: LIDOCAINE 5% (LIDODERM) PATCH TD SCH (09:00)
[2021-09-23] MEDS: DOCUSATE SODIUM 100MG CAPSULE PO SCH ×2 (09:26→20:20)
[2021-09-23] MEDS: ASPIRIN 81MG ENTERIC TABLET PO SCH (09:27)
[2021-09-23] MEDS: APIXABAN 5 MG TAB (ELIQUIS) PO SCH ×2 (09:27→20:20)
[2021-09-23] MEDS: PANTOPRAZOLE 40MG TAB (PROTONIX) PO SCH (09:27)
[2021-09-23] MEDS: ATORVASTATIN 20 MG TAB PO SCH (09:27)
[2021-09-23] MEDS: OMEGA-3 1000MG CAPSULE PO SCH (09:27)
[2021-09-23] MEDS: allopurinoL 300 MG TAB PO SCH (09:27)
[2021-09-23 14:00] VITALS: BP 152/89
[2021-09-23] MEDS: ENTRESTO 24-26MG TABLET (SACUBITRIL/VALSARTAN) PO SCH (20:20)
[2021-09-23] MEDS: FINASTERIDE 5 MG TAB PO SCH (20:20)
[2021-09-23] MEDS: SENNA 8.6 MG TAB (SENOKOT) PO SCH (20:21)
[2021-09-23] MEDS: **NOTE PATIENT COMMENT** MISC XX SCH (20:21)
[2021-09-23] MEDS: LATANOPROST 0.005% OPHTH SOLN 2.5 ML OU SCH (20:21)
[2021-09-23 21:55] VITALS: BP 140/63
[2021-09-23] MEDS: ACETAMINOPHEN TAB 650MG DOSE (2X325MG) PO PRN (23:28)
[2021-09-24] MEDS: METOPROLOL TART 50 MG TAB PO SCH ×4 (05:06→23:52)
[2021-09-24 06:02] VITALS: BP 156/80
[2021-09-24] MEDS: DOCUSATE SODIUM 100MG CAPSULE PO SCH ×2 (07:27→20:30)
[2021-09-24] MEDS: ASPIRIN 81MG ENTERIC TABLET PO SCH (07:27)
[2021-09-24] MEDS: PANTOPRAZOLE 40MG TAB (PROTONIX) PO SCH (07:27)
[2021-09-24] MEDS: APIXABAN 5 MG TAB (ELIQUIS) PO SCH ×2 (07:27→20:30)
[2021-09-24] MEDS: allopurinoL 300 MG TAB PO SCH (07:27)
[2021-09-24] MEDS: ACETAMINOPHEN TAB 650MG DOSE (2X325MG) PO PRN (07:27)
[2021-09-24] MEDS: OMEGA-3 1000MG CAPSULE PO SCH (07:28)
[2021-09-24] MEDS: ENTRESTO 24-26MG TABLET (SACUBITRIL/VALSARTAN) PO SCH ×2 (07:28→20:30)
[2021-09-24] MEDS: LIDOCAINE 5% (LIDODERM) PATCH TD SCH (07:28)
[2021-09-24] MEDS: COSOPT OCUMETER PLUS 10ML (DORZOLAMIDE/TIMOLOL) OU SCH (07:28)
[2021-09-24] MEDS: ATORVASTATIN 20 MG TAB PO SCH (07:28)
[2021-09-24 11:23] VITALS: BP 135/66
[2021-09-24 12:38] LABS: BASO % 0.3 % (0.0-1.0); EOS % 0.5 % (0.0-3.0); HEMATOCRIT 36.8 % (42.0-52.0); HEMOGLOBIN 12.1 g/dl (13.5-17.5); LYMPH # 0.8 10^3/uL (1.5-5.0); LYMPH % 12.4 % (24.0-44.0); MEAN CORPUSCULAR HEMOGLOBIN 30.9 pg (27.0-33.0); MEAN CORPUSCULAR HGB CONC 32.9 g/dl (32.0-36.5); MEAN CORPUSCULAR VOLUME 93.9 fl (80.0-96.0); MONO # 0.7 10^3/uL (0.0-0.8); MONO % 11.6 % (2.0-8.0); NEUTROPHILS # 4.7 10^3/uL (1.5-8.5); NEUTROPHILS % 74.7 % (36.0-66.0); PLATELET COUNT, AUTOMATED 208 10^3/uL (150-450); RED BLOOD COUNT 3.92 10^6/uL (4.30-6.10); WHITE BLOOD COUNT 6.3 10^3/uL (4.0-10.0)
[2021-09-24 13:08] LABS: BLOOD UREA NITROGEN 15 MG/DL (7-18); CALCIUM LEVEL 8.1 MG/DL (8.8-10.2); CARBON DIOXIDE LEVEL 26 MEQ/L (21-32); CHLORIDE LEVEL 104 MEQ/L (98-107); CREATININE FOR GFR 0.62 MG/DL (0.70-1.30); GLOMERULAR FILTRATION RATE > 60.0 (>35); GLUCOSE, FASTING 109 MG/DL (70-100); POTASSIUM SERUM 4.1 MEQ/L (3.5-5.1); SODIUM LEVEL 138 MEQ/L (136-145)
[2021-09-24 14:00] VITALS: BP 156/70
[2021-09-24 20:00] VITALS: BP 156/64
[2021-09-24] MEDS: **NOTE PATIENT COMMENT** MISC XX SCH (20:30)
[2021-09-24] MEDS: FINASTERIDE 5 MG TAB PO SCH (20:30)
[2021-09-24] MEDS: POLYVINYL ALCOHOL OPHTH SOLN 15 ML(LIQUITEARS) OD SCH (20:30)
[2021-09-24] MEDS: BRINZOLAMIDE 1 % OPHTH SUSP (AZOPT) 10ML OU SCH (20:30)
[2021-09-24] MEDS: SENNA 8.6 MG TAB (SENOKOT) PO SCH (20:30)
[2021-09-25 06:00] VITALS: BP 174/76
[2021-09-25] MEDS: METOPROLOL TART 50 MG TAB PO SCH ×3 (06:20→17:09)
[2021-09-25 07:40] VITALS: BP 172/86
[2021-09-25] MEDS: PANTOPRAZOLE 40MG TAB (PROTONIX) PO SCH (07:49)
[2021-09-25] MEDS: ENTRESTO 24-26MG TABLET (SACUBITRIL/VALSARTAN) PO SCH ×2 (07:49→21:35)
[2021-09-25] MEDS: OMEGA-3 1000MG CAPSULE PO SCH (07:49)
[2021-09-25] MEDS: ASPIRIN 81MG ENTERIC TABLET PO SCH (07:49)
[2021-09-25] MEDS: LIDOCAINE 5% (LIDODERM) PATCH TD SCH (07:50)
[2021-09-25] MEDS: ATORVASTATIN 20 MG TAB PO SCH (07:50)
[2021-09-25] MEDS: APIXABAN 5 MG TAB (ELIQUIS) PO SCH ×2 (07:50→21:35)
[2021-09-25] MEDS: POLYVINYL ALCOHOL OPHTH SOLN 15 ML(LIQUITEARS) OD SCH ×2 (07:50→21:00)
[2021-09-25] MEDS: DOCUSATE SODIUM 100MG CAPSULE PO SCH ×2 (07:50→21:35)
[2021-09-25] MEDS: allopurinoL 300 MG TAB PO SCH (07:50)
[2021-09-25] MEDS: BRINZOLAMIDE 1 % OPHTH SUSP (AZOPT) 10ML OU SCH ×2 (07:50→21:00)
[2021-09-25 11:16] VITALS: BP 162/77
[2021-09-25] MEDS ORDERED: ESOM40CA35 PO (13:20)
[2021-09-25] MEDS ORDERED: ASPI81TA26 PO (13:20)
[2021-09-25] MEDS ORDERED: ELIQ5TAB PO (13:20)
[2021-09-25] MEDS ORDERED: ATOR40TA75 PO (13:20)
[2021-09-25] MEDS ORDERED: FINA5TAB2 PO (13:20)
[2021-09-25] MEDS ORDERED: ENTR1TAB PO (13:20)
[2021-09-25] MEDS ORDERED: ALLO300T2 PA (13:20)
[2021-09-25] MEDS ORDERED: LOPR1TAB6 PO (13:20)
[2021-09-25 14:00] VITALS: BP 139/74
[2021-09-25 20:00] VITALS: BP 142/70
[2021-09-25] MEDS: SENNA 8.6 MG TAB (SENOKOT) PO SCH (21:35)
[2021-09-25] MEDS: FINASTERIDE 5 MG TAB PO SCH (21:35)
[2021-09-25] MEDS: **NOTE PATIENT COMMENT** MISC XX SCH (21:36)
[2021-09-26 05:42] VITALS: BP 170/84
[2021-09-26] MEDS: METOPROLOL TART 50 MG TAB PO SCH ×2 (05:42)
[2021-09-26 06:00] VITALS: BP 170/84
[2021-09-26] MEDS: BRINZOLAMIDE 1 % OPHTH SUSP (AZOPT) 10ML OU SCH (09:00)
[2021-09-26] MEDS: POLYVINYL ALCOHOL OPHTH SOLN 15 ML(LIQUITEARS) OD SCH (09:00)
[2021-09-26] MEDS: ENTRESTO 24-26MG TABLET (SACUBITRIL/VALSARTAN) PO SCH (09:31)
[2021-09-26] MEDS: ASPIRIN 81MG ENTERIC TABLET PO SCH (09:31)
[2021-09-26] MEDS: APIXABAN 5 MG TAB (ELIQUIS) PO SCH (09:31)
[2021-09-26] MEDS: ATORVASTATIN 20 MG TAB PO SCH (09:31)
[2021-09-26] MEDS: DOCUSATE SODIUM 100MG CAPSULE PO SCH (09:31)
[2021-09-26] MEDS: allopurinoL 300 MG TAB PO SCH (09:32)
[2021-09-26] MEDS: OMEGA-3 1000MG CAPSULE PO SCH (09:32)
[2021-09-26] MEDS: PANTOPRAZOLE 40MG TAB (PROTONIX) PO SCH (09:32)
[2021-09-26] MEDS: LIDOCAINE 5% (LIDODERM) PATCH TD SCH (09:32)
[2022-09-20] MEDS ORDERED: LIDOCAINE 5% (LIDODERM) PATCH TD SCH (09:00)
== END 2021-09-26 12:35 | disposition home health service (06) | DRG 194 ==
LOC: M PM&R 15:30 → UNDODISIN 09-16 18:00
PROVIDERS: ADMIT Physical Medicine & Rehabilitation; ATTEND Physical Medicine & Rehabilitation
DX: J18.9 Pneumonia, unspecified organism (principal); I50.22 Chronic systolic (congestive) heart failure; N17.9 Acute kidney failure, unspecified; R53.1 Weakness; M48.061 Spinal stenosis, lumbar region without neurogenic claudication; D69.6 Thrombocytopenia, unspecified; G62.9 Polyneuropathy, unspecified; I11.0 Hypertensive heart disease with heart failure; M19.90 Unspecified osteoarthritis, unspecified site; M10.9 Gout, unspecified; I25.10 Atherosclerotic heart disease of native coronary artery without angina pectoris; N40.0 Benign prostatic hyperplasia without lower urinary tract symptoms; Z95.5 Presence of coronary angioplasty implant and graft; I45.10 Unspecified right bundle-branch block; F34.1 Dysthymic disorder; I34.0 Nonrheumatic mitral (valve) insufficiency; Z86.718 Personal history of other venous thrombosis and embolism; G47.33 Obstructive sleep apnea (adult) (pediatric); E78.5 Hyperlipidemia, unspecified; Z79.01 Long term (current) use of anticoagulants; Z79.82 Long term (current) use of aspirin; Z79.899 Other long term (current) drug therapy; Z88.2 Allergy status to sulfonamides; Z88.8 Allergy status to other drugs, medicaments and biological substances

== ENCOUNTER 2021-09-16 15:02 | Inpatient (IN) | payer MEDICARE, OTHER ==
[~2021-09-16 15:02] MED LIST changes: +ELIQ5TAB PO; +ENTR1TAB PO; +FLOM0.4C39 PO; +HALO0.5H PO; -LOSA50TA28 PO; +LOSA50TA88 PO; +PANT40TA29 PO
[2021-09-16] MEDS ORDERED: DIGOXIN INJ 0.5 MG/2 ML AMP (J1160) IV STA (18:24)
[2021-09-16] MEDS ORDERED: CEPACOL LOZENGE PO PRN (18:30)
[2021-09-16] MEDS ORDERED: ACETAMINOPHEN TAB 650MG DOSE (2X325MG) PO PRN (18:30)
[2021-09-16] MEDS ORDERED: HOME MED LIST COMPLETE! XX SCH (18:35)
[2021-09-16 18:36] VITALS: BP 93/57
--- NOTE | 2021-09-16 19:21 | HPEPDOC ---
General Date of Admission Sep 16, 2021 at 18:17 Date of Service: Sep 16, 2021 Chief Complaint The patient is a 86-year-old male admitted with a reason for visit of A Fib With Rvr. History of Present Illness Mr. Cisneros is an 86-year-old male who was initially admitted for atrial flutter with RVR secondary to pneumonia and HFrEF due to uncontrolled atrial flutter. Patient was cardioverted on 09/08 and patient was seen by cardiology, Dr. Buckley. Patient was sent to ARU for rehab. I saw patient today. He was feeling well. Denied any fever, chest pain, dyspnea, abdominal pain, diarrhea, or dysuria. His main concern are the hiccups and the gas in his abdomen. I was notified later in the day that patient had a heart rate into the 150s and hypotension of 76/52. Patient was given IV fluids and digoxin. IV fluids did help with blood pressure. Oral digoxin did not help. I reached out to Cardiology, Dr. Martínez. Dr. Martínez recommended digoxin loading (1mg in total. Okay to give q4h) and amiodarone 400mg BID. Patient will be readmitted to atrial fib rillation with RVR. Home Medications Scheduled Apixaban (Eliquis) 5 Mg Tablet, 10 MG PO BID to convert to 5 mg BID on 09/16/21 Aspirin (Aspirin EC) 81 Mg Tablet.dr, 81 MG PO DAILY, (Reported) Atorvastatin Calcium (Atorvastatin Calcium) 40 Mg Tablet, 40 MG PO DAILY, (Reported) Bimatoprost (Lumigan) 0.01% 2.5ML Drops, 1 DROP OU QHS, (Reported) Cyclosporine (Restasis) 0.05% Droperette, 1 DROP OU BID, (Reported) Dorzolamide/Timolol/Pf (Cosopt Pf Eye Drops) 1 Each Droperette, 1 DROP OU BID, (Reported) Esomeprazole Magnesium (Esomeprazole Magnesium Dr) 40 Mg Capsule.dr, 40 MG PO DAILY, (Reported) Losartan Potassium (Losartan Potassium) 50 Mg Tablet, 50 MG PO DAILY, (Reported) [place]-3/Dha/Epa/Fish Oil (Fish Oil 1,000 mg Softgel) 1 Each Capsule, 1 CAP PO DAILY, (Reported) Pantoprazole Sodium (Pantoprazole Sodium) 40 Mg Tablet.dr, 1 TAB PO DAILY Potassium Citrate (Potassium Citrate 10MEQ (Urocit-K)) 10 Meq Tablet.er, 10 MEQ PO BID, (Reported) Sacubitril/Valsartan (Entresto 24 mg-26 mg Tablet) 1 Each Tablet, 1 TAB PO BID Tamsulosin HCl (Flomax) 0.4 Mg Capsule, 0.4 MG PO DAILY Tramadol HCl (Tramadol HCl) 50 Mg Tablet, 50 MG PO TID, (Reported) allopurinoL (allopurinoL) 300 Mg Tablet, 300 MG PA DAILY, (Reported) Scheduled PRN Gabapentin (Gabapentin) 600 Mg Tablet, 600 MG PO QID PRN for moderate pain, (Reported) Haloperidol (Haloperidol) 0.5 Mg Tablet, 0.25 MG PO Q6HP PRN for HICCUPS Ibuprofen (Ibuprofen) 600 Mg Tablet, 600 MG PO TID PRN for moderate pain, (Reported) Allergies Coded Allergies: sulfamethoxazole (Verified Allergy, Intermediate, rash, 09/07/21) trimethoprim (Verified Allergy, Intermediate, rash, 09/07/21) Past Medical History Medical History 1. Hypertension 2. Gout 3. Osteoarthritis 4. Chronic CAD status post stents 5. BPH 6. Lumbar spinal stenosis 7. Dysthymic disorder 8. Diverticulosis 9. 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 GERD 11. Nephrolithiasis 12. Nonrheumatic mitral valve insufficiency 13. Nonrheumatic AV stenosis status post TAVR Surgical History 1. Open nephrolithotomy secondary to nephrolithiasis 2. TAVR secondary to nonrheumatic AV stenosis 3. Hip surgery 4. Left inguinal hernia repair 5. Resection of adenomatous polyp of the colon Family History Father has history of liver cirrhosis Social History * Smoker: Denies A-FIB/CHADSVASC A-FIB History Current/History of A-Fib/PAF?: Yes Current PO Anticoag Therapy: Yes Review of Systems Constitutional: Denies: Chills, Fever Eyes: Denies: Vision change ENT: Denies: Sore Throat Skin: Denies: Rash Pulmonary: Reports: Cough; Denies: Dyspnea Cardiovascular: Denies: Chest Pain Gastrointestinal: Reports: Other Symptoms (Has hiccups); Denies: Abdominal Pain Genitourinary: Denies: Dysuria Hematologic: Denies: Bruising Neurological: Reports: Other Symptoms (Has neuropathy) Psych: Denies: Anxiety, Depression Physical Examination General Exam: Positive: Alert, Cooperative Eye Exam: Positive: EOMI; Negative: Sclera icteric ENT Exam: Positive: Atraumatic Neck Exam: Positive: Supple Chest Exam: Positive: Clear to auscultation; Negative: Rales, Rhonchi, Wheezing Heart Exam: Positive: Tachycardic, Irregular Rhythm Abdomen Exam: Positive: Normal bowel sounds, Soft; Negative: Tenderness Extremity Exam: Negative: Edema Neuro Exam: Positive: Normal Speech Psych Exam: Positive: Mental status NL, Mood NL Vital Signs Temp 98.5, HR 153, RR 18, BP 93/57, Resp Rate 95 at room air. Assessment/Plan Mr. Cisneros is an 86-year-old male who was initially admitted for atrial flutter with RVR secondary to pneumonia and HFrEF due to uncontrolled atrial flutter. I reached out to Cardiology, Dr. Martínez. Dr. Martínez recommends digoxin loading (which can be given q4h) and amiodarone 400mg BID. Plan / VTE VTE Prophylaxis Ordered?: Yes Plan Plan 1. Atrial fib/flutter with RVR -Spoke with cardiology, Dr. Martínez, recommending digoxin load and amiodarone -Continue Eliquis 2. HFrEF -REBECCA by Dr. Buckley demonstrates EF 15 to 20%. -Patient unable to tolerate Entresto -No beta mitra due to hypotension 3. Gout -Continue allopurinol 4. CAD s/p stents -Continue atorvastatin -Not on BB or ACEi due to hypotension 5. GERD -Continue pantoprazole 6. Gas -Continue Simethicone 7. Hiccups -Due to arrhythmia, will discontinue haldol 8. DVT ppx -Continue apixaban Disposition: Pending improvement in heart rate. Patient to return to ARU when stabilized. RUI GLOVER DO Sep 16, 2021 19:20
[2021-09-16 20:00] VITALS: BP 109/73
[2021-09-16] MEDS: FINASTERIDE 5 MG TAB PO SCH (20:28)
[2021-09-16] MEDS: DOCUSATE SODIUM 100MG CAPSULE PO SCH (20:28)
[2021-09-16] MEDS: COSOPT OCUMETER PLUS 10ML (DORZOLAMIDE/TIMOLOL) OU SCH ×2 (20:28→21:00)
[2021-09-16] MEDS: APIXABAN 5 MG TAB (ELIQUIS) PO SCH (20:28)
[2021-09-16] MEDS: SENNA 8.6 MG TAB (SENOKOT) PO SCH (20:28)
[2021-09-16] MEDS: PANTOPRAZOLE 40MG TAB (PROTONIX) PO SCH (20:28)
[2021-09-16] MEDS: SIMETHICONE 80MG CHEW TAB PO SCH ×2 (20:31→23:07)
[2021-09-16] MEDS ORDERED: AMIODARONE 200 MG TAB (PACERONE) PO SCH (21:00)
[2021-09-16] MEDS: DIGOXIN INJ 0.5 MG/2 ML AMP (J1160) IV SCH (22:15)
[2021-09-17] VITALS (7 sets, daily range): BP systolic 105–180; BP diastolic 64–91
[2021-09-17] MEDS ORDERED: DIGOXIN INJ 0.5 MG/2 ML AMP (J1160) IV SCH (00:30)
[2021-09-17] MEDS: DIGOXIN INJ 0.5 MG/2 ML AMP (J1160) IV SCH (02:11)
[2021-09-17] MEDS: SIMETHICONE 80MG CHEW TAB PO SCH ×4 (08:12→23:32)
[2021-09-17] MEDS: PANTOPRAZOLE 40MG TAB (PROTONIX) PO SCH ×2 (08:15→20:00)
[2021-09-17] MEDS: DOCUSATE SODIUM 100MG CAPSULE PO SCH ×2 (08:15→20:00)
[2021-09-17] MEDS: ATORVASTATIN 20 MG TAB PO SCH (08:15)
[2021-09-17] MEDS: allopurinoL 300 MG TAB PO SCH (08:15)
[2021-09-17] MEDS: APIXABAN 5 MG TAB (ELIQUIS) PO SCH ×2 (08:15→20:00)
[2021-09-17 08:18] LABS: MEAN CORPUSCULAR HEMOGLOBIN 31.1 pg (27.0-33.0); MEAN CORPUSCULAR HGB CONC 33.3 g/dl (32.0-36.5); MEAN CORPUSCULAR VOLUME 93.3 fl (80.0-96.0); PLATELET COUNT, AUTOMATED 152 10^3/uL (150-450); RED BLOOD COUNT 3.86 10^6/uL (4.30-6.10); WHITE BLOOD COUNT 7.6 10^3/uL (4.0-10.0)
[2021-09-17 08:47] LABS: BLOOD UREA NITROGEN 18 MG/DL (7-18); CALCIUM LEVEL 7.9 MG/DL (8.8-10.2); CARBON DIOXIDE LEVEL 24 MEQ/L (21-32); CHLORIDE LEVEL 110 MEQ/L (98-107); GLOMERULAR FILTRATION RATE > 60.0 (>35); GLUCOSE, FASTING 85 MG/DL (70-100); POTASSIUM SERUM 4.5 MEQ/L (3.5-5.1); SODIUM LEVEL 141 MEQ/L (136-145)
[2021-09-17] MEDS: COSOPT OCUMETER PLUS 10ML (DORZOLAMIDE/TIMOLOL) OU SCH ×2 (09:07→20:00)
[2021-09-17] MEDS ORDERED: METOPROLOL 5 MG/5 ML VIAL IV ONE (10:30)
[2021-09-17] MEDS: METOPROLOL TART 25 MG TABLET PO SCH ×3 (11:28→23:34)
[2021-09-17] MEDS: DIGOXIN 0.25 MG TAB PO SCH (11:30)
--- NOTE | 2021-09-17 16:45 | ECGEPIP ---
[facility] Test Date: 2021-09-16 Pat Name: GEORGE BETH Department: Room: [place] [id number] Gender: Male [employer]: [employer] : 1935 Requested By: RUI Lara Order Number: [id number] Reading MD: Aaron Vaughn Measurements Intervals [place]jo Rate: 157 P: 49 AK: QRS: 268 QRSD: 128 T: 70 QT: 322 QTc: 520 Interpretive Statements Wide complex tachycardia Right bundle branch block Similar to tracing done 14:43 on same date Electronically Signed on 09-17-2021 16:44:46 EST by Aaron Vaughn
--- NOTE | 2021-09-17 19:40 | IPNPDOC ---
Subjective Date Seen The patient was seen on 09/17/21. Subjective Chief Complaint/HPI Mr. Cisneros is an 86-year-old male who was initially admitted for atrial flutter with RVR secondary to pneumonia and HFrEF due to uncontrolled atrial flutter. Patient was digoxin loaded last night. Heart rate temporarily improved to the 110s, but then this morning increased to 145. Patient felt well this morning without chest pain, dyspnea, or lightheadedness. Spoke with cardiology. Since blood pressure improved, we can try oral Lopressor. Patient responded well to oral Lopressor. Objective Physical Examination General Exam: Positive: Alert, Cooperative Eye Exam: Positive: EOMI ENT Exam: Positive: Atraumatic Neck Exam: Positive: Supple Chest Exam: Positive: Clear to auscultation Heart Exam: Positive: Tachycardic, Irregular Rhythm Abdomen Exam: Positive: Normal bowel sounds, Soft Extremity Exam: Negative: Edema Neuro Exam: Positive: Normal Speech Psych Exam: Positive: Mental status NL, Mood NL Assessment /Plan Assessment Mr. Cisneros is an 86-year-old male who was initially admitted for atrial flutter with RVR secondary to pneumonia and HFrEF due to uncontrolled atrial flutter. Patient was digoxin loaded and tolerated medication. Unable to use amiodarone due to QTC prolongation (520). Blood pressure did improve and I was able to start patient on PO Lopressor. Responding well to PO Lopressor. If heart rate remains controlled, patient can return to ARU. Plan/VTE VTE Prophylaxis Ordered?: Yes Plan 1. Atrial fib/flutter with RVR -Spoke with cardiology, Dr. Martínez, recommending digoxin load. Patient's blood pressure improved. Now tolerating PO Lopressor -Lopressor 25mg q6hs with holding parameters -Continue Eliquis 2. HFrEF -REBECCA by Dr. Buckley demonstrates EF 15 to 20%. -Patient unable to tolerate Entresto 3. Gout -Continue allopurinol 4. CAD s/p stents -Continue atorvastatin -Not on BB or ACEi due to hypotension 5. GERD -Continue pantoprazole 6. Gas -Continue Simethicone 7. Hiccups -Due to arrhythmia, will discontinue Haldol 8. DVT ppx -Continue apixaban Disposition: If heart rate remains stable today, can consider return to ARU tomorrow VS, I&O, 24H, Fishbone Vital Signs/I&O Vital Signs Date Time Temp Pulse Resp B/P (MAP) Pulse Ox O2 Delivery O2 Flow Rate FiO2 09/17/21 18:12 100 146/71 09/17/21 16:36 97.1 18 100 Nasal Cannula 2.0 I&O- Last 24 Hours up to 6 AM 09/17/21 06:00 Intake Total 0 ml Balance 0 ml Laboratory Data 24H LABS Laboratory Tests 2 09/17/21 07:41: Nucleated Red Blood Cells % (auto) 0.0, Anion Gap 7L, Glomerular Filtration Rate > 60.0, Calcium Level 7.9L CBC/BMP Laboratory Tests 09/17/21 07:41 RUI GLOVER DO Sep 17, 2021 19:40
[2021-09-17] MEDS: FINASTERIDE 5 MG TAB PO SCH (20:00)
[2021-09-17] MEDS: SENNA 8.6 MG TAB (SENOKOT) PO SCH (20:00)
[2021-09-18] VITALS (7 sets, daily range): BP systolic 110–151; BP diastolic 63–92
[2021-09-18] MEDS: SIMETHICONE 80MG CHEW TAB PO SCH ×2 (05:18→12:47)
[2021-09-18] MEDS: METOPROLOL TART 25 MG TABLET PO SCH ×2 (05:19→12:46)
[2021-09-18 06:12] LABS: HEMATOCRIT 35.5 % (42.0-52.0); HEMOGLOBIN 11.6 g/dl (13.5-17.5); MEAN CORPUSCULAR HEMOGLOBIN 30.9 pg (27.0-33.0); MEAN CORPUSCULAR HGB CONC 32.7 g/dl (32.0-36.5); MEAN CORPUSCULAR VOLUME 94.7 fl (80.0-96.0); PLATELET COUNT, AUTOMATED 155 10^3/uL (150-450); RED BLOOD COUNT 3.75 10^6/uL (4.30-6.10); WHITE BLOOD COUNT 6.8 10^3/uL (4.0-10.0)
[2021-09-18 06:29] LABS: BLOOD UREA NITROGEN 17 MG/DL (7-18); CARBON DIOXIDE LEVEL 26 MEQ/L (21-32); CHLORIDE LEVEL 109 MEQ/L (98-107); CREATININE FOR GFR 0.72 MG/DL (0.70-1.30); GLOMERULAR FILTRATION RATE > 60.0 (>35); GLUCOSE, FASTING 89 MG/DL (70-100); POTASSIUM SERUM 4.4 MEQ/L (3.5-5.1); SODIUM LEVEL 139 MEQ/L (136-145)
[2021-09-18] MEDS: COSOPT OCUMETER PLUS 10ML (DORZOLAMIDE/TIMOLOL) OU SCH (08:58)
[2021-09-18] MEDS: DOCUSATE SODIUM 100MG CAPSULE PO SCH (08:58)
[2021-09-18] MEDS: PANTOPRAZOLE 40MG TAB (PROTONIX) PO SCH (08:59)
[2021-09-18] MEDS: APIXABAN 5 MG TAB (ELIQUIS) PO SCH (08:59)
[2021-09-18] MEDS: ATORVASTATIN 20 MG TAB PO SCH (08:59)
[2021-09-18] MEDS: allopurinoL 300 MG TAB PO SCH (09:00)
[2021-09-18] MEDS: DIGOXIN 0.25 MG TAB PO SCH (09:02)
[2021-09-18] MEDS ORDERED: METOPROLOL TART 25 MG TABLET PO ONE (10:00)
[2021-09-18] MEDS ORDERED: METOPROLOL TART 25 MG TABLET PO STA (13:15)
[2021-09-18] MEDS ORDERED: ELIQ5TAB PO (14:43)
[2021-09-18] MEDS ORDERED: DIGO0.253 PO (14:43)
[2021-09-18] MEDS ORDERED: LOPR1TAB6 PO (14:43)
[2021-09-18] MEDS ORDERED: FINA5TAB2 PO (14:43)
[2021-09-18] MEDS ORDERED: COLA100C5 PO (14:43)
[2021-09-18] MEDS ORDERED: SENN18TA PO (14:43)
--- NOTE | 2021-09-18 20:28 | DS.PDOC ---
Discharge Summary General Date of Admission Sep 16, 2021 at 18:17 Date of Discharge Sep 18, 2021 Discharge Summary PROCEDURES PERFORMED DURING STAY: None ADMITTING DIAGNOSES: 1. Atrial fib/flutter with RVR 2. HFrEF 3. Gout 4. CAD s/p stents 5. GERD 6. Gas 7. Hiccups DISCHARGE DIAGNOSES: 1. Atrial fib/flutter with RVR 2. HFrEF 3. Gout 4. CAD s/p stents 5. GERD 6. Gas 7. Hiccups COMPLICATIONS/CHIEF COMPLAINT: A Fib With Rvr. HISTORY OF PRESENT ILLNESS: Mr. Cisneros is an 86-year-old male who was initially admitted for atrial flutter with RVR secondary to pneumonia and HFrEF due to uncontrolled atrial flutter. Patient was cardioverted on 09/08 and patient was seen by cardiology, Dr. Buckley. Patient was sent to ARU for rehab. I saw patient today. He was feeling well. Denied any fever, chest pain, dyspnea, abdominal pain, diarrhea, or dysuria. His main concern are the hiccups and the gas in his abdomen. I was notified later in the day that patient had a heart rate into the 150s and hypotension of 76/52. Patient was given IV fluids and digoxin. IV fluids did help with blood pressure. Oral digoxin did not help. I reached out to Cardiology, Dr. Martínez. Dr. Martínez recommended digoxin loading (1mg in total. Okay to give q4h) and amiodarone 400mg BID. Patient will be readmitted to atrial fibrillation with RVR. HOSPITAL COURSE: I was not able to restart amiodarone due to prolonged qTC of 520. Haldol (for hiccups) was not continued due to qTC prolongation. Patient's blood pressure improved with fluids. Digoxin helped with heart rate intermittently. Since blood pressure improved with blood pressure or digoxin, I was able to start patient on Lopressor. Initially had patient Lopressor 25mg q6 h. Patient's blood pressure was able to tolerate all of the Lopressor. He was intermittently controlled with this dosage. Increased Lopressor to 50mg TID. Heart rate was better controlled. Of note, sometimes his heart rate will increase due to anxiety or anger. Patient was anxious to go home. I explained he would need rehab first. Patient was discharged to ARU today. DISCHARGE MEDICATIONS: Please see below. ALLERGIES: Please see below. PHYSICAL EXAMINATION ON DISCHARGE: VITAL SIGNS: Please see below. GENERAL: Comfortable, in no apparent distress. HEENT: Head normocephalic/atraumatic, EOMI, sclera clear. NECK: Supple. RESPIRATORY: Lungs clear to auscultation bilaterally, no rales, wheeze or rhonchi. CARDIOVASCULAR: Regular rate and rhythm. ABDOMEN: Soft, nontender, no guarding or rebound tenderness. Normal bowel sounds. MUSCLE SKELETAL: No pitting edema. NEUROLOGICAL: CN 312 grossly intact. PSYCHOLOGICAL: Anxious LABORATORY DATA: Please see below. IMAGING: None PROGNOSIS: Good ACTIVITY: As tolerated DIET: 2gm sodium diet DISCHARGE PLAN: Patient to return to ARU. Continue blood thinner and beta mitra DISPOSITION: 62 D/T Rehab Facility. DISCHARGE INSTRUCTIONS: 1. Follow up with ARU provider ITEMS TO FOLLOWUP ON ON OUTPATIENT: 1. Heart rate 2. Blood pressure DISCHARGE CONDITION: Stable Total time spent on discharge planning, discharge summary, and medication ángela nciliation: 35 minutes Vital Signs/I&Os Vital Signs Date Time Temp Pulse Resp B/P (MAP) Pulse Ox O2 Delivery O2 Flow Rate FiO2 09/18/21 13:57 74 111/63 09/18/21 12:35 97.3 18 99 Nasal Cannula 2.0 I&O- Last 24 Hours up to 6 AM 09/18/21 06:00 Intake Total 740 ml Output Total 1875 ml Balance -1135 ml Laboratory Data Labs 24H Laboratory Tests 2 09/18/21 05:23: Nucleated Red Blood Cells % (auto) 0.0, Anion Gap 4L, Glomerular Filtration Rate > 60.0, Calcium Level 8.0L CBC/BMP Laboratory Tests 09/18/21 05:23 Discharge Medications Scheduled Apixaban (Eliquis) 5 Mg Tablet, 5 MG PO BID Aspirin (Aspirin EC) 81 Mg Tablet.dr, 81 MG PO DAILY, (Reported) Atorvastatin Calcium (Atorvastatin Calcium) 40 Mg Tablet, 40 MG PO DAILY, (R eported) Bimatoprost (Lumigan) 0.01% 2.5ML Drops, 1 DROP OU QHS, (Reported) Cyclosporine (Restasis) 0.05% Droperette, 1 DROP OU BID, (Reported) Digoxin (Digoxin) 250 Mcg Tablet, 0.25 MG PO DAILY Docusate Sodium (Colace) 100 Mg Capsule, 100 MG PO BID Dorzolamide/Timolol/Pf (Cosopt Pf Eye Drops) 1 Each Droperette, 1 DROP OU BID, (Reported) Esomeprazole Magnesium (Esomeprazole Magnesium Dr) 40 Mg Capsule.dr, 40 MG PO DAILY, (Reported) Finasteride (Finasteride) 5 Mg Tablet, 5 MG PO QHS Metoprolol Tartrate (Lopressor) 50 Mg Tablet, 50 MG PO TID [place]-3/Dha/Epa/Fish Oil (Fish Oil 1,000 mg Softgel) 1 Each Capsule, 1 CAP PO DAILY, (Reported) Pantoprazole Sodium (Pantoprazole Sodium) 40 Mg Tablet.dr, 1 TAB PO DAILY Senna (Senna Lax) 8.6 Mg Tablet, 1 TAB PO QHS allopurinoL (allopurinoL) 300 Mg Tablet, 300 MG PA DAILY, (Reported) Allergies Coded Allergies: sulfamethoxazole (Verified Allergy, Intermediate, rash, 09/07/21) trimethoprim (Verified Allergy, Intermediate, rash, 09/07/21) RUI GLOVER DO Sep 18, 2021 20:28
[2021-09-18] MEDS ORDERED: METOPROLOL TART 50 MG TAB PO SCH (21:00)
== END 2021-09-18 17:13 | DRG 309 ==
LOC: M PCU 18:17
PROVIDERS: ADMIT Internal Medicine; ATTEND Internal Medicine
DX: I48.91 Unspecified atrial fibrillation (principal); I50.22 Chronic systolic (congestive) heart failure; Z66 Do not resuscitate; Z79.01 Long term (current) use of anticoagulants; Z79.82 Long term (current) use of aspirin; Z79.899 Other long term (current) drug therapy; Z88.2 Allergy status to sulfonamides; Z88.8 Allergy status to other drugs, medicaments and biological substances; I11.0 Hypertensive heart disease with heart failure; M10.9 Gout, unspecified; M19.90 Unspecified osteoarthritis, unspecified site; I25.10 Atherosclerotic heart disease of native coronary artery without angina pectoris; Z95.5 Presence of coronary angioplasty implant and graft; N40.0 Benign prostatic hyperplasia without lower urinary tract symptoms; M48.061 Spinal stenosis, lumbar region without neurogenic claudication; F34.1 Dysthymic disorder; G62.9 Polyneuropathy, unspecified; K21.9 Gastro-esophageal reflux disease without esophagitis; I34.0 Nonrheumatic mitral (valve) insufficiency; I48.92 Unspecified atrial flutter

== ENCOUNTER → 2021-10-15 | Outpatient (CLI) | payer MEDICARE, OTHER ==
[~2021-10-15] MED LIST changes: +COLA100C5 PO; +DIGO0.253 PO; +FINA5TAB2 PO; +LOPR1TAB6 PO; +SENN18TA PO
--- NOTE | 2021-10-15 16:11 | REP ---
INDICATION: OTHER SPECIFIED ABNORMAL FINDINGS OF BLOOD LEAD SCIENTIST COMPARISON: 09/10/2021 TECHNIQUE: PA and lateral. FINDINGS: Mediastinum and cardiac silhouette are stable with cardiomegaly and evidence for prior aortic valve repair and coronary stenting. The lung morales demonstrate chronic appearing changes and suspected mild airspace disease along with possible small residual right pleural effusion. Overall, findings are improved when compared with prior examination. No pneumothorax. Skeletal structures intact. Old healed right rib fracture noted. IMPRESSION: Chronic changes. Cannot exclude subtle residual airspace disease and small right pleural reaction, but overall improved when compared with prior examination. <Electronically signed by Israel Garcia > 10/15/21 [id number]
[2021-10-15 16:58] LABS: BASO % 0.7 % (0.0-1.0); EOS # 0.1 10^3/uL (0.0-0.5); HEMATOCRIT 38.9 % (42.0-52.0); HEMOGLOBIN 12.6 g/dl (13.5-17.5); LYMPH # 1.2 10^3/uL (1.5-5.0); MEAN CORPUSCULAR HEMOGLOBIN 30.1 pg (27.0-33.0); MEAN CORPUSCULAR HGB CONC 32.4 g/dl (32.0-36.5); MEAN CORPUSCULAR VOLUME 92.8 fl (80.0-96.0); MONO # 0.6 10^3/uL (0.0-0.8); MONO % 10.3 % (2.0-8.0); NEUTROPHILS % 67.7 % (36.0-66.0); PLATELET COUNT, AUTOMATED 158 10^3/uL (150-450); RED BLOOD COUNT 4.19 10^6/uL (4.30-6.10); WHITE BLOOD COUNT 5.9 10^3/uL (4.0-10.0)
[2021-10-15 17:26] LABS: ALBUMIN 3.4 GM/DL (3.2-5.2); ALT/SGPT 30 U/L (12-78); BILIRUBIN,TOTAL 1.3 MG/DL (0.2-1.0); BLOOD UREA NITROGEN 16 MG/DL (7-18); CALCIUM LEVEL 8.9 MG/DL (8.8-10.2); CARBON DIOXIDE LEVEL 29 MEQ/L (21-32); CHLORIDE LEVEL 107 MEQ/L (98-107); CREATININE FOR GFR 0.87 MG/DL (0.70-1.30); GLOMERULAR FILTRATION RATE > 60.0 (>35); GLUCOSE, FASTING 93 MG/DL (70-100); MAGNESIUM LEVEL 1.9 MG/DL (1.8-2.4); POTASSIUM SERUM 4.5 MEQ/L (3.5-5.1); SODIUM LEVEL 141 MEQ/L (136-145); TOTAL PROTEIN 7.2 GM/DL (6.4-8.2)
== END ==
LOC: M PLALAB 15:37 → M PLAIMG 15:37
PROVIDERS: ATTEND Internal Medicine
DX: I51.7 Cardiomegaly (principal); R79.89 Other specified abnormal findings of blood chemistry; I33.0 Acute and subacute infective endocarditis; I50.20 Unspecified systolic (congestive) heart failure; Z86.718 Personal history of other venous thrombosis and embolism; Z87.01 Personal history of pneumonia (recurrent)

== ENCOUNTER → 2021-11-03 | Outpatient (CLI) | payer MEDICARE, OTHER ==
[~2021-11-03] MED LIST changes: +LOSA50TA28 PO; -LOSA50TA88 PO
[2021-11-03 13:13] LABS: BASO # 0.1 10^3/uL (0.0-0.2); BASO % 0.6 % (0.0-1.0); EOS # 0.1 10^3/uL (0.0-0.5); EOS % 0.8 % (0.0-3.0); HEMATOCRIT 43.6 % (42.0-52.0); HEMOGLOBIN 14.3 g/dl (13.5-17.5); LYMPH # 2.3 10^3/uL (1.5-5.0); LYMPH % 25.7 % (24.0-44.0); MEAN CORPUSCULAR HEMOGLOBIN 30.5 pg (27.0-33.0); MEAN CORPUSCULAR HGB CONC 32.8 g/dl (32.0-36.5); MONO % 11.6 % (2.0-8.0); NEUTROPHILS # 5.5 10^3/uL (1.5-8.5); NEUTROPHILS % 60.9 % (36.0-66.0); PLATELET COUNT, AUTOMATED 164 10^3/uL (150-450); RED BLOOD COUNT 4.69 10^6/uL (4.30-6.10)
[2021-11-03 13:38] LABS: ERYTHROCYTE SEDIMENTATION RATE 11 mm/hr (0-20)
[2021-11-03 13:43] LABS: ALBUMIN 3.6 GM/DL (3.2-5.2); BILIRUBIN,TOTAL 1.2 MG/DL (0.2-1.0); C REACTIVE PROTEIN QUANTITATIV 0.3 MG/DL (0.00-0.30); CALCIUM LEVEL 9.2 MG/DL (8.8-10.2); CREATININE FOR GFR 1.49 MG/DL (0.70-1.30); GLOMERULAR FILTRATION RATE 47.7 (>35); POTASSIUM SERUM 4.6 MEQ/L (3.5-5.1); TOTAL PROTEIN 6.8 GM/DL (6.4-8.2)
== END ==
LOC: M PLALAB 10:16
PROVIDERS: ATTEND Internal Medicine
DX: R79.89 Other specified abnormal findings of blood chemistry (principal); I33.0 Acute and subacute infective endocarditis

== ENCOUNTER 2021-11-05 14:45 | Emergency (ER) | payer MEDICARE, OTHER ==
[~2021-11-05] VITALS: Ht 182.9 cm; Wt 67.7 kg
[2021-11-05] MEDS ORDERED: NS 1,000 ML IV ONE (15:05)
[2021-11-05 15:29] LABS: BASO # 0.1 10^3/uL (0.0-0.2); BASO % 0.5 % (0.0-1.0); EOS % 0.4 % (0.0-3.0); HEMATOCRIT 41.2 % (42.0-52.0); HEMOGLOBIN 13.8 g/dl (13.5-17.5); LYMPH # 1.6 10^3/uL (1.5-5.0); MEAN CORPUSCULAR HEMOGLOBIN 30.9 pg (27.0-33.0); MEAN CORPUSCULAR HGB CONC 33.5 g/dl (32.0-36.5); MEAN CORPUSCULAR VOLUME 92.2 fl (80.0-96.0); MONO # 0.8 10^3/uL (0.0-0.8); MONO % 8.3 % (2.0-8.0); NEUTROPHILS # 7.4 10^3/uL (1.5-8.5); NEUTROPHILS % 74.3 % (36.0-66.0); PLATELET COUNT, AUTOMATED 147 10^3/uL (150-450); RED BLOOD COUNT 4.47 10^6/uL (4.30-6.10); WHITE BLOOD COUNT 9.9 10^3/uL (4.0-10.0)
[2021-11-05 15:47] LABS: INR 1.96; PROTHROMBIN TIME 22.7 SECONDS (12.7-14.5)
[2021-11-05 15:48] LABS: PARTIAL THROMBOPLASTIN TIME 39.1 SECONDS (25.9-37.0)
[2021-11-05] MEDS ORDERED: METO25TA PO (16:00)
[2021-11-05] MEDS ORDERED: BUME2TAB3 PO (16:00)
[2021-11-05] MEDS ORDERED: LASI20TA3 PO (16:00)
[2021-11-05 16:03] LABS: CK-MB VALUE MASS 3.5 NG/ML (<3.6); MB/CK RELATIVE INDEX 5.07 (< OR =4)
[2021-11-05] MEDS ORDERED: IBUP-1022 PO (16:06)
[2021-11-05] MEDS ORDERED: BIMA01SOL OU (16:06)
[2021-11-05] MEDS ORDERED: POTA10808 PO (16:06)
[2021-11-05] MEDS ORDERED: LOSA50TA28 PO (16:06)
[2021-11-05] MEDS ORDERED: HOME MED LIST COMPLETE! XX SCH (16:10)
[2021-11-05 16:23] LABS: ALBUMIN 3.5 GM/DL (3.2-5.2); BILIRUBIN,DIRECT 0.3 MG/DL (0.0-0.2); BILIRUBIN,TOTAL 1.3 MG/DL (0.2-1.0); CALCIUM LEVEL 9.2 MG/DL (8.8-10.2); CREATININE FOR GFR 1.55 MG/DL (0.70-1.30); FREE T4 1.44 NG/DL (0.76-1.46); GLOMERULAR FILTRATION RATE 45.6 (>35); POTASSIUM SERUM 4.4 MEQ/L (3.5-5.1); THYROID STIMULATING HORMONE 2.32 uIU/ML (0.358-3.740); TOTAL PROTEIN 6.5 GM/DL (6.4-8.2)
[2021-11-05] MEDS ORDERED: ETOMIDATE INJ 20MG/10ML VIAL IV STA (17:24)
[2021-11-05] MEDS ORDERED: ETOMIDATE INJ 20MG/10ML VIAL As Ordered ONE (17:26)
[2021-11-05 21:01] VITALS: BP 133/60
== END 2021-11-05 21:06 | disposition short-term general hospital (02) ==
LOC: M ED 14:45 → EDBD 14:45 → M ED 21:06
DX: I48.91 Unspecified atrial fibrillation (principal); R00.1 Bradycardia, unspecified; I45.10 Unspecified right bundle-branch block; I44.4 Left anterior fascicular block; I45.2 Bifascicular block; R06.02 Shortness of breath; I10 Essential (primary) hypertension; M10.9 Gout, unspecified; N40.0 Benign prostatic hyperplasia without lower urinary tract symptoms; M19.90 Unspecified osteoarthritis, unspecified site; K21.9 Gastro-esophageal reflux disease without esophagitis; M48.061 Spinal stenosis, lumbar region without neurogenic claudication; Z79.82 Long term (current) use of aspirin; Z79.01 Long term (current) use of anticoagulants; Z79.899 Other long term (current) drug therapy; Z88.1 Allergy status to other antibiotic agents
CPT/HCPCS: 71045; 80048; 80076; 82550; 82553; 83690; 83880; 84439; 84443; 84484; 85025; 85610; 85730; 87798; 92960; 93005; 93041; 94760; 96361; 96374; 99285; G0463

== ENCOUNTER → 2022-02-27 | Outpatient (CLI) | payer MEDICARE, OTHER ==
[~2022-02-27] MED LIST changes: +BUME2TAB3 PO; +LASI20TA3 PO; +METO25TA PO
[2022-02-27 13:58] LABS: BASO # 0.1 10^3/uL (0.0-0.2); BASO % 0.9 % (0.0-1.0); EOS # 0.3 10^3/uL (0.0-0.5); EOS % 4.5 % (0.0-3.0); HEMATOCRIT 37.8 % (42.0-52.0); HEMOGLOBIN 12.6 g/dl (13.5-17.5); LYMPH # 1.4 10^3/uL (1.5-5.0); LYMPH % 25.3 % (24.0-44.0); MEAN CORPUSCULAR HEMOGLOBIN 31.7 pg (27.0-33.0); MEAN CORPUSCULAR HGB CONC 33.3 g/dl (32.0-36.5); MONO # 0.7 10^3/uL (0.0-0.8); MONO % 11.9 % (2.0-8.0); NEUTROPHILS # 3.2 10^3/uL (1.5-8.5); PLATELET COUNT, AUTOMATED 141 10^3/uL (150-450); RED BLOOD COUNT 3.98 10^6/uL (4.30-6.10); WHITE BLOOD COUNT 5.5 10^3/uL (4.0-10.0)
[2022-02-27 14:18] LABS: ALT/SGPT 18 U/L (12-78); BLOOD UREA NITROGEN 22 MG/DL (7-18); CALCIUM LEVEL 9.2 MG/DL (8.8-10.2); CARBON DIOXIDE LEVEL 31 MEQ/L (21-32); CHLORIDE LEVEL 103 MEQ/L (98-107); CREATININE FOR GFR 0.96 MG/DL (0.70-1.30); GLOMERULAR FILTRATION RATE > 60.0 (>35); GLUCOSE, FASTING 93 MG/DL (70-100); POTASSIUM SERUM 4.3 MEQ/L (3.5-5.1); SODIUM LEVEL 138 MEQ/L (136-145)
[2022-02-27 14:19] LABS: ALBUMIN 3.6 GM/DL (3.2-5.2); BILIRUBIN,TOTAL 1.1 MG/DL (0.2-1.0); CHOLESTEROL LEVEL 164 MG/DL (<200); CHOLESTEROL RISK RATIO 3.094 (<5); HDL CHOLESTEROL 53 MG/DL (>40); LDL CHOLESTEROL 96 MG/DL (<100); MAGNESIUM LEVEL 2.1 MG/DL (1.8-2.4); NON-HDL-C 111 MG/DL; TOTAL PROTEIN 6.5 GM/DL (6.4-8.2); TRIGLYCERIDES LEVEL 74 MG/DL (<150); URIC ACID 4.2 MG/DL (3.5-7.2)
== END ==
LOC: M PLALAB 11:01
PROVIDERS: ATTEND Internal Medicine
DX: E78.00 Pure hypercholesterolemia, unspecified (principal); I25.10 Atherosclerotic heart disease of native coronary artery without angina pectoris; K21.9 Gastro-esophageal reflux disease without esophagitis; M10.9 Gout, unspecified

== ENCOUNTER → 2022-12-15 | Outpatient (CLI) | payer MEDICARE, OTHER ==
[2022-12-15 17:29] LABS: HEMATOCRIT 41.9 % (42.0-52.0); MEAN CORPUSCULAR HEMOGLOBIN 31.8 pg (27.0-33.0); MEAN CORPUSCULAR HGB CONC 33.4 g/dl (32.0-36.5); MEAN CORPUSCULAR VOLUME 95.2 fl (80.0-96.0); PLATELET COUNT, AUTOMATED 148 10^3/uL (150-450); WHITE BLOOD COUNT 6.6 10^3/uL (4.0-10.0)
[2022-12-15 17:42] LABS: THYROID STIMULATING HORMONE 2.529 uIU/ML (0.55-4.78)
[2022-12-15 17:43] LABS: C REACTIVE PROTEIN QUANTITATIV < 0.40 MG/DL (<1.0)
[2022-12-15 17:44] LABS: ALBUMIN 3.9 G/DL (3.2-5.2); ALKALINE PHOSPHATASE 93 U/L (46-116); ALT/SGPT 20 U/L (7.0-40); AST/SGOT 33 U/L (<34); BILIRUBIN,TOTAL 1.7 MG/DL (0.3-1.2); BLOOD UREA NITROGEN 25 MG/DL (9-23); CALCIUM LEVEL 8.9 MG/DL (8.3-10.6); CARBON DIOXIDE LEVEL 33 MMOL/L (20-31); CHLORIDE LEVEL 104 MMOL/L (98-107); CHOLESTEROL LEVEL 145 MG/DL (<200); CHOLESTEROL RISK RATIO 2.87 (<5); CREATININE FOR GFR 1.09 MG/DL (0.70-1.30); GLOMERULAR FILTRATION RATE > 60.0 (>35); GLUCOSE, FASTING 78 MG/DL (74-106); HDL CHOLESTEROL 50.5 MG/DL (>40); LDL CHOLESTEROL 80.7 MG/DL (<100); NON-HDL-C 95 MG/DL; POTASSIUM SERUM 4.8 MMOL/L (3.5-5.1); SODIUM LEVEL 139 MMOL/L (136-145); TOTAL 25(OH) VITAMIN D 17.1 NG/ML (20.0-100.0); TOTAL PROTEIN 6.7 G/DL (5.7-8.2); TRIGLYCERIDES LEVEL 69 MG/DL (<150)
[2022-12-15 17:45] LABS: FREE T4 1.07 NG/DL (0.89-1.76); VITAMIN B12 LEVEL 600 PG/ML (211-911)
[2022-12-15 17:48] LABS: HEMOGLOBIN A1c 5.3 % (4.0-6.0)
== END ==
LOC: M PLALAB 15:33
PROVIDERS: ATTEND Internal Medicine Hematology
DX: I25.10 Atherosclerotic heart disease of native coronary artery without angina pectoris (principal); Z79.899 Other long term (current) drug therapy

== ENCOUNTER → 2023-02-24 | Outpatient (CLI) | payer MEDICARE, OTHER ==
[~2023-02-24] MED LIST changes: -COSO1SOL2 OU; +DORZ1DRO6 OU
== END ==
LOC: M RAD 09:31
PROVIDERS: ATTEND Podiatrist Foot & Ankle Surgery
DX: I25.10 Atherosclerotic heart disease of native coronary artery without angina pectoris (principal); I70.203 Unspecified atherosclerosis of native arteries of extremities, bilateral legs; I74.3 Embolism and thrombosis of arteries of the lower extremities

== ENCOUNTER → 2023-03-16 | Outpatient (POV) | payer MEDICARE, OTHER ==
[~2023-03-16] VITALS: Ht 182.9 cm; Wt 70.4 kg
[2023-03-16 08:15] VITALS: BP 130/70
== END ==
LOC: M IRPOV 07:29
PROVIDERS: ATTEND Radiology Diagnostic Radiology
DX: S91.103A Unspecified open wound of unspecified great toe without damage to nail, initial encounter (principal); M79.661 Pain in right lower leg; M79.662 Pain in left lower leg; Z88.2 Allergy status to sulfonamides; Z79.82 Long term (current) use of aspirin; Y93.9 Activity, unspecified; Y92.9 Unspecified place or not applicable

== ENCOUNTER → 2023-03-24 | Outpatient (CLI) | payer MEDICARE, OTHER ==
[~2023-03-24] MED LIST changes: +ISOVUE-370 76% 100ML VIAL As Ordered ONE
[2023-03-24 11:03] LABS: BLOOD UREA NITROGEN 22 MG/DL (9-23); CALCIUM LEVEL 8.4 MG/DL (8.3-10.6); CARBON DIOXIDE LEVEL 31 MMOL/L (20-31); CHLORIDE LEVEL 105 MMOL/L (98-107); CREATININE FOR GFR 1.14 MG/DL (0.70-1.30); GLOMERULAR FILTRATION RATE > 60.0 (>35); GLUCOSE, FASTING 93 MG/DL (74-106); POTASSIUM SERUM 4.7 MMOL/L (3.5-5.1); SODIUM LEVEL 138 MMOL/L (136-145)
== END ==
LOC: M LAB 09:43 → M RAD 09:43
PROVIDERS: ATTEND Radiology Diagnostic Radiology
DX: I70.203 Unspecified atherosclerosis of native arteries of extremities, bilateral legs (principal); N28.1 Cyst of kidney, acquired; M47.9 Spondylosis, unspecified
CPT/HCPCS: 75635; 80048; Q9967

== ENCOUNTER → 2023-05-11 | Outpatient (CLI) | payer MEDICARE, OTHER ==
[~2023-05-11] MED LIST changes: +HEPARIN 1,000UNITS/ML 10ML VIAL (FOR RADIOLOGY & DIALYSIS ONLY) As Ordered ONE; +ISOVUE-300 61% 100ML VIAL As Ordered ONE; -ISOVUE-370 76% 100ML VIAL As Ordered ONE; +LIDOCAINE 1% MDV 20ML VIAL As Ordered ONE; +MIDAZOLAM INJ 2MG/2ML VIAL As Ordered ONE; +SENN-111 PO; -SENN18TA PO; +fentaNYL 100 MCG/2 ML INJECTION As Ordered ONE
[2023-05-11 10:15] VITALS: TEMP 97.6
[2023-05-11 11:02] LABS: HEMATOCRIT 40.4 % (42.0-52.0); HEMOGLOBIN 13.5 g/dl (13.5-17.5); MEAN CORPUSCULAR HEMOGLOBIN 31.6 pg (27.0-33.0); MEAN CORPUSCULAR HGB CONC 33.4 g/dl (32.0-36.5); MEAN CORPUSCULAR VOLUME 94.6 fl (80.0-96.0); RED BLOOD COUNT 4.27 10^6/uL (4.30-6.10)
[2023-05-11 11:07] LABS: PLATELET COUNT, AUTOMATED 123 10^3/uL (150-450)
[2023-05-11 11:26] LABS: BLOOD UREA NITROGEN 21 MG/DL (9-23); CALCIUM LEVEL 9.1 MG/DL (8.3-10.6); CARBON DIOXIDE LEVEL 28 MMOL/L (20-31); CHLORIDE LEVEL 105 MMOL/L (98-107); CREATININE FOR GFR 1.03 MG/DL (0.70-1.30); GLOMERULAR FILTRATION RATE > 60.0 (>35); GLUCOSE, FASTING 89 MG/DL (74-106); POTASSIUM SERUM 4.7 MMOL/L (3.5-5.1); SODIUM LEVEL 139 MMOL/L (136-145)
[2023-05-11 12:24] LABS: INR 1.16
[2023-05-11 17:30] VITALS: BP 134/64; O2SAT 98
== END ==
LOC: M IRPRO 09:47
PROVIDERS: ATTEND Surgery Vascular Surgery
DX: I70.213 Atherosclerosis of native arteries of extremities with intermittent claudication, bilateral legs (principal)
CPT/HCPCS: 36415; 37224; 37228; 80048; 85027; 85610; 86850; 86900; 86901; 99152; 99153; C1725; C1760; C1769; C1887; C1894; C2623; J2250; J3010; Q9967

== ENCOUNTER → 2023-05-28 | Outpatient (CLI) | payer MEDICARE, OTHER ==
[~2023-05-28] MED LIST changes: -HEPARIN 1,000UNITS/ML 10ML VIAL (FOR RADIOLOGY & DIALYSIS ONLY) As Ordered ONE; -ISOVUE-300 61% 100ML VIAL As Ordered ONE; -LIDOCAINE 1% MDV 20ML VIAL As Ordered ONE; -MIDAZOLAM INJ 2MG/2ML VIAL As Ordered ONE; -fentaNYL 100 MCG/2 ML INJECTION As Ordered ONE
== END ==
LOC: M RAD 10:51
PROVIDERS: ATTEND Surgery Vascular Surgery
DX: I70.202 Unspecified atherosclerosis of native arteries of extremities, left leg (principal)

== ENCOUNTER 2024-01-26 06:10 | Day surgery (SDC) | payer MEDICARE, OTHER ==
[~2024-01-26] VITALS: Ht 182.9 cm; Wt 70.8 kg
[~2024-01-26 06:10] MED LIST changes: +ALLO100T PO; +AMIO200T49 PO; +B-COCAP7 PO; +FLAX1300 PO; +METO100T5 PO
[2024-01-26] MEDS ORDERED: LR 1,000 ML IV SCH (06:45)
[2024-01-26] MEDS ORDERED: LIDOCAINE 2% 100MG/5ML SDV (FOR ANES.) As Ordered ONE (07:15)
[2024-01-26] MEDS ORDERED: propofoL 200 MG/20 ML VIAL As Ordered ONE (07:15)
[2024-01-26] MEDS ORDERED: dexmedeTOMIDine (4MCG/ML)200MCG/50ML BTL (PRECEDEX) As Ordered ONE (07:17)
[2024-01-26 08:45] VITALS: BP 145/79; TEMP 97; O2SAT 100
== END 2024-01-26 08:45 | disposition home or self-care (01) ==
LOC: M SDC 06:10
PROVIDERS: ATTEND Internal Medicine Cardiovascular Disease
DX: I48.91 Unspecified atrial fibrillation (principal); I25.10 Atherosclerotic heart disease of native coronary artery without angina pectoris; I10 Essential (primary) hypertension; E78.5 Hyperlipidemia, unspecified; M10.9 Gout, unspecified; K21.9 Gastro-esophageal reflux disease without esophagitis; M48.00 Spinal stenosis, site unspecified; I73.9 Peripheral vascular disease, unspecified; Z79.899 Other long term (current) drug therapy; Z79.01 Long term (current) use of anticoagulants; Z88.2 Allergy status to sulfonamides

== ENCOUNTER → 2024-05-17 | Outpatient (CLI) | payer MEDICARE, OTHER ==
[2024-05-17 15:09] LABS: HEMATOCRIT 39.1 % (42.0-52.0); HEMOGLOBIN 13.3 g/dl (13.5-17.5); MEAN CORPUSCULAR HEMOGLOBIN 33.3 pg (27.0-33.0); MEAN CORPUSCULAR VOLUME 97.8 fl (80.0-96.0); PLATELET COUNT, AUTOMATED 107 10^3/uL (150-450); WHITE BLOOD COUNT 5.1 10^3/uL (4.0-10.0)
[2024-05-17 15:31] LABS: ALBUMIN 3.7 G/DL (3.2-5.2); ALKALINE PHOSPHATASE 82 U/L (46-116); ALT/SGPT 48 U/L (7.0-40); AST/SGOT 41 U/L (<34); BILIRUBIN,TOTAL 1.8 MG/DL (0.3-1.2); BLOOD UREA NITROGEN 18 MG/DL (9-23); CALCIUM LEVEL 8.6 MG/DL (8.3-10.6); CARBON DIOXIDE LEVEL 25 MMOL/L (20-31); CHLORIDE LEVEL 106 MMOL/L (98-107); CREATININE FOR GFR 1.09 MG/DL (0.70-1.30); GLOMERULAR FILTRATION RATE > 60.0 (>35); GLUCOSE, FASTING 77 MG/DL (74-106); POTASSIUM SERUM 4.8 MMOL/L (3.5-5.1); SODIUM LEVEL 137 MMOL/L (136-145); TOTAL PROTEIN 6.2 G/DL (5.7-8.2)
[2024-05-17 15:33] LABS: THYROID STIMULATING HORMONE 1.375 uIU/ML (0.55-4.78)
== END ==
LOC: M PLALAB 13:33
PROVIDERS: ATTEND Internal Medicine Cardiovascular Disease
DX: I50.32 Chronic diastolic (congestive) heart failure (principal)

== ENCOUNTER → 2024-05-24 | Outpatient (CLI) | payer MEDICARE, OTHER ==
[2024-05-24 18:40] LABS: BASO % 0.7 % (0.0-1.0); EOS # 0.1 10^3/uL (0.0-0.5); EOS % 2.4 % (0.0-3.0); HEMATOCRIT 39.1 % (42.0-52.0); HEMOGLOBIN 13.3 g/dl (13.5-17.5); LYMPH # 1.1 10^3/uL (1.5-5.0); LYMPH % 19.2 % (24.0-44.0); MEAN CORPUSCULAR HEMOGLOBIN 33.1 pg (27.0-33.0); MEAN CORPUSCULAR VOLUME 97.3 fl (80.0-96.0); MONO # 0.7 10^3/uL (0.0-0.8); MONO % 12.7 % (2.0-8.0); NEUTROPHILS # 3.6 10^3/uL (1.5-8.5); NEUTROPHILS % 64.5 % (36.0-66.0); PLATELET COUNT, AUTOMATED 122 10^3/uL (150-450); RED BLOOD COUNT 4.02 10^6/uL (4.30-6.10); WHITE BLOOD COUNT 5.5 10^3/uL (4.0-10.0)
[2024-05-24 18:45] LABS: CREATININE, URINE 126.3 MG/DL; MAU/CREAT RATIO 14.2 MCG/MG (0.0-30.0)
[2024-05-24 18:46] LABS: C REACTIVE PROTEIN QUANTITATIV < 0.40 MG/DL (<1.0)
[2024-05-24 18:53] LABS: ALKALINE PHOSPHATASE 88 U/L (46-116); ALT/SGPT 47 U/L (7.0-40); AST/SGOT 42 U/L (<34); BILIRUBIN,TOTAL 2.2 MG/DL (0.3-1.2); BLOOD UREA NITROGEN 20 MG/DL (9-23); CALCIUM LEVEL 8.9 MG/DL (8.3-10.6); CARBON DIOXIDE LEVEL 31 MMOL/L (20-31); CHLORIDE LEVEL 103 MMOL/L (98-107); CHOLESTEROL LEVEL 165 MG/DL (<200); CHOLESTEROL RISK RATIO 3.03 (<5); CREATININE FOR GFR 1.21 MG/DL (0.70-1.30); FREE T4 1.45 NG/DL (0.89-1.76); GLOMERULAR FILTRATION RATE > 60.0 (>35); GLUCOSE, FASTING 77 MG/DL (74-106); HDL CHOLESTEROL 54.4 MG/DL (>40); LDL CHOLESTEROL 96.2 MG/DL (<100); NON-HDL-C 110.6 MG/DL; POTASSIUM SERUM 4.8 MMOL/L (3.5-5.1); SODIUM LEVEL 136 MMOL/L (136-145); THYROID STIMULATING HORMONE 2.918 uIU/ML (0.55-4.78); TOTAL 25(OH) VITAMIN D 20.9 NG/ML (20.0-100.0); TOTAL PROTEIN 6.8 G/DL (5.7-8.2); TRIGLYCERIDES LEVEL 72 MG/DL (<150); VITAMIN B12 LEVEL 467 PG/ML (211-911)
[2024-05-24 19:05] LABS: HEMOGLOBIN A1c 5.2 % (4.0-6.0)
== END ==
LOC: M PLALAB 15:48
PROVIDERS: ATTEND Internal Medicine Hematology
DX: I25.10 Atherosclerotic heart disease of native coronary artery without angina pectoris (principal); Z79.899 Other long term (current) drug therapy

== ENCOUNTER → 2024-07-26 | Outpatient (CLI) | payer MEDICARE, OTHER ==
[~2024-07-26] MED LIST changes: +GABA-1490 PO; -GABA600T4 PO; -SENN-111 PO; +SENN-165 PO
[2024-07-26 10:04] LABS: BASO % 0.8 % (0.0-1.0); EOS # 0.3 10^3/uL (0.0-0.5); HEMATOCRIT 39.4 % (42.0-52.0); HEMOGLOBIN 13.7 g/dl (13.5-17.5); LYMPH # 1.2 10^3/uL (1.5-5.0); LYMPH % 23.5 % (24.0-44.0); MEAN CORPUSCULAR HEMOGLOBIN 33.3 pg (27.0-33.0); MEAN CORPUSCULAR HGB CONC 34.8 g/dl (32.0-36.5); MEAN CORPUSCULAR VOLUME 95.9 fl (80.0-96.0); MONO # 0.6 10^3/uL (0.0-0.8); MONO % 12.9 % (2.0-8.0); NEUTROPHILS # 2.9 10^3/uL (1.5-8.5); NEUTROPHILS % 57.6 % (36.0-66.0); PLATELET COUNT, AUTOMATED 110 10^3/uL (150-450); RED BLOOD COUNT 4.11 10^6/uL (4.30-6.10)
[2024-07-26 10:33] LABS: FERRITIN 376.5 NG/ML (10.5-307.3)
== END ==
LOC: M PLALAB 08:46
PROVIDERS: ATTEND Internal Medicine Hematology
DX: D64.9 Anemia, unspecified (principal)

== ENCOUNTER → 2024-09-11 | Outpatient (REF) | payer MEDICARE, OTHER ==
[2024-09-11 15:31] LABS: APPEARANCE, URINE CLEAR (CLEAR); BACTERIA, URINE AUTO NEGATIVE (NEGATIVE); BILIRUBIN, URINE AUTO NEGATIVE (NEGATIVE); BLOOD, URINE BLOOD 3+ (NEGATIVE); COLOR, URINE YELLOW (YELLOW); GLUCOSE, URINE (UA) AUTO NEGATIVE (NEGATIVE); KETONE, URINE AUTO NEGATIVE (NEGATIVE); LEUKOCYTE ESTERASE, URINE AUTO NEGATIVE (NEGATIVE); NITRITE, URINE AUTO NEGATIVE (NEGATIVE); PROTEIN, URINE AUTO NEGATIVE (NEGATIVE); RBC, URINE AUTO 16 /HPF (0-3); SPECIFIC GRAVITY URINE AUTO 1.017 (1.002-1.035); SQUAMOUS EPITHELIAL CELL UR AU 0 /HPF (0-6); WBC, URINE AUTO 2 /HPF (0-3)
== END ==
LOC: M SMT 14:22
PROVIDERS: ATTEND Urology
DX: R30.0 Dysuria (principal)

== ENCOUNTER → 2024-09-13 | Outpatient (CLI) | payer MEDICARE, OTHER | LOC: M PLAIMG 08:55 | PROVIDERS: ATTEND Urology | DX: R31.21 Asymptomatic microscopic hematuria (principal); N20.0 Calculus of kidney ==

== ENCOUNTER → 2024-09-25 | Outpatient (CLI) | payer MEDICARE, OTHER ==
[~2024-09-25] MED LIST changes: -POTA10808 PO; +POTA10809 PO
== END ==
LOC: M PLAIMG 10:56
PROVIDERS: ATTEND Urology
DX: N20.2 Calculus of kidney with calculus of ureter (principal); N13.30 Unspecified hydronephrosis

== ENCOUNTER → 2024-09-28 | Outpatient (CLI) | payer MEDICARE, OTHER ==
[~2024-09-28] MED LIST changes: +CEPH500C PO; +FURO40TA2 PO; +TAMS1CAP17 PO
[2024-09-28 13:06] LABS: HEMATOCRIT 34.9 % (42.0-52.0); HEMOGLOBIN 11.8 g/dl (13.5-17.5); MEAN CORPUSCULAR HEMOGLOBIN 32.4 pg (27.0-33.0); MEAN CORPUSCULAR HGB CONC 33.8 g/dl (32.0-36.5); MEAN CORPUSCULAR VOLUME 95.9 fl (80.0-96.0); PLATELET COUNT, AUTOMATED 178 10^3/uL (150-450); RED BLOOD COUNT 3.64 10^6/uL (4.30-6.10)
[2024-09-28 13:39] LABS: CALCIUM LEVEL 9.3 MG/DL (8.3-10.6); CREATININE FOR GFR 1.25 MG/DL (0.70-1.30); POTASSIUM SERUM 4.5 MMOL/L (3.5-5.1)
== END ==
LOC: M WUC 10:22
PROVIDERS: ATTEND Urology
DX: Z01.818 Encounter for other preprocedural examination (principal); N20.0 Calculus of kidney; N39.0 Urinary tract infection, site not specified; J98.4 Other disorders of lung

== ENCOUNTER 2024-10-06 07:32 | Day surgery (SDC) | payer MEDICARE, OTHER ==
[~2024-10-06] VITALS: Ht 177.8 cm; Wt 61.2 kg
[~2024-10-06 07:32] MED LIST changes: -CEPH500C PO
[2024-10-06] MEDS ORDERED: NS (Normal Saline) 0.9% 1,000 ML IV SCH ×2 (07:35→10:35)
[2024-10-06] MEDS ORDERED: LIDOCAINE 2% 100MG/5ML SDV (FOR ANES.) As Ordered ONE (08:08)
[2024-10-06] MEDS ORDERED: fentaNYL 100 MCG/2 ML INJECTION As Ordered ONE (08:08)
[2024-10-06] MEDS ORDERED: ONDANSETRON 4MG 2ML VIAL As Ordered ONE (08:08)
[2024-10-06] MEDS ORDERED: ACETAMINOPHEN 1000MG/100ML IV BAG As Ordered ONE (08:08)
[2024-10-06] MEDS ORDERED: ETOMIDATE INJ 20MG/10ML VIAL As Ordered ONE (08:08)
[2024-10-06] MEDS ORDERED: propofoL 200 MG/20 ML VIAL As Ordered ONE (08:08)
[2024-10-06] MEDS: ceFAZolin SOD 2 GM in IV 1 EA IV ONE (09:30)
[2024-10-06] MEDS ORDERED: METOPROLOL 5 MG/5 ML VIAL As Ordered ONE (09:38)
[2024-10-06] MEDS: ISOVUE-300 61% 100ML VIAL As Ordered ONE (09:54)
[2024-10-06] MEDS ORDERED: PHENYLephrine 500MCG 5ML (100MCG/ML) SYRINGE As Ordered ONE (10:03)
[2024-10-06] MEDS ORDERED: HYDROMORPHONE HCL 0.5 MG/ 0.5 ML SYRINGE IV PRN (10:35)
[2024-10-06] MEDS ORDERED: oxyCODONE 5MG TAB PO PRN (10:35)
[2024-10-06] MEDS ORDERED: fentaNYL 100 MCG/2 ML INJECTION IV PRN (10:35)
[2024-10-06] MEDS ORDERED: ONDANSETRON 4MG 2ML VIAL IV PRN (10:35)
[2024-10-06] MEDS ORDERED: CEPH500C PO (10:49)
[2024-10-06 12:23] VITALS: BP 115/72; TEMP 97.1; O2SAT 100
[2024-10-06] MEDS ORDERED: ACETAMINOPHEN 325 MG TAB PO PRN (13:50)
== END 2024-10-06 12:50 | disposition home or self-care (01) ==
LOC: M SDC 07:32
PROVIDERS: ATTEND Urology
DX: N13.2 Hydronephrosis with renal and ureteral calculous obstruction (principal); N40.0 Benign prostatic hyperplasia without lower urinary tract symptoms; R35.1 Nocturia; I25.10 Atherosclerotic heart disease of native coronary artery without angina pectoris; I10 Essential (primary) hypertension; E78.00 Pure hypercholesterolemia, unspecified; Z79.01 Long term (current) use of anticoagulants; Z79.899 Other long term (current) drug therapy; Z79.82 Long term (current) use of aspirin; Z95.5 Presence of coronary angioplasty implant and graft; Z95.0 Presence of cardiac pacemaker; Z95.2 Presence of prosthetic heart valve; M10.9 Gout, unspecified; Z88.2 Allergy status to sulfonamides; Z87.442 Personal history of urinary calculi; Z88.8 Allergy status to other drugs, medicaments and biological substances; Z90.89 Acquired absence of other organs; Z90.49 Acquired absence of other specified parts of digestive tract
CPT/HCPCS: 52332; 52352; 76000; 82365; C1769; C1894; C2617; J0131; J0690; J1100; J2371; J2405; J3010; Q9967

== ENCOUNTER → 2024-10-19 | Outpatient (CLI) | payer MEDICARE, OTHER ==
[~2024-10-19] MED LIST changes: +CEPH500C PO
== END ==
LOC: M RAD 11:30
PROVIDERS: ATTEND Podiatrist Foot & Ankle Surgery
DX: I73.89 Other specified peripheral vascular diseases (principal)

== ENCOUNTER 2024-12-16 21:40 | Emergency (ER) | payer MEDICARE, OTHER ==
[~2024-12-16] VITALS: Ht 175.3 cm; Wt 73.0 kg
[2024-12-16 22:20] LABS: BASO # 0.1 10^3/uL (0.0-0.2); BASO % 0.7 % (0.0-1.0); EOS % 0.4 % (0.0-3.0); HEMOGLOBIN 14.2 g/dl (13.5-17.5); LYMPH # 0.8 10^3/uL (1.5-5.0); LYMPH % 10.9 % (24.0-44.0); MEAN CORPUSCULAR HEMOGLOBIN 32.1 pg (27.0-33.0); MEAN CORPUSCULAR HGB CONC 33.8 g/dl (32.0-36.5); MEAN CORPUSCULAR VOLUME 94.8 fl (80.0-96.0); MONO % 13.4 % (2.0-8.0); NEUTROPHILS # 5.6 10^3/uL (1.5-8.5); NEUTROPHILS % 74.2 % (36.0-66.0); PLATELET COUNT, AUTOMATED 134 10^3/uL (150-450); RED BLOOD COUNT 4.43 10^6/uL (4.30-6.10); WHITE BLOOD COUNT 7.5 10^3/uL (4.0-10.0)
[2024-12-16 23:05] LABS: BLOOD UREA NITROGEN 21 MG/DL (9-23); CALCIUM LEVEL 8.7 MG/DL (8.3-10.6); CARBON DIOXIDE LEVEL 24 MMOL/L (20-31); CHLORIDE LEVEL 104 MMOL/L (98-107); CREATININE FOR GFR 1.15 MG/DL (0.70-1.30); GLOMERULAR FILTRATION RATE > 60.0 (>35); GLUCOSE, FASTING 123 MG/DL (74-106); MAGNESIUM LEVEL 1.7 MG/DL (1.8-2.4); POTASSIUM SERUM 4.7 MMOL/L (3.5-5.1); SODIUM LEVEL 140 MMOL/L (136-145)
[2024-12-17] MEDS: MAG SULF 1GM/100ML (MAG RUN) 1 GM in IV 1 EA IV ONE (00:13)
[2024-12-17 00:56] LABS: APPEARANCE, URINE CLEAR (CLEAR); BACTERIA, URINE AUTO NEGATIVE (NEGATIVE); BILIRUBIN, URINE AUTO NEGATIVE (NEGATIVE); BLOOD, URINE BLOOD NEGATIVE (NEGATIVE); COLOR, URINE YELLOW (YELLOW); GLUCOSE, URINE (UA) AUTO NEGATIVE (NEGATIVE); KETONE, URINE AUTO NEGATIVE (NEGATIVE); LEUKOCYTE ESTERASE, URINE AUTO NEGATIVE (NEGATIVE); NITRITE, URINE AUTO NEGATIVE (NEGATIVE); PROTEIN, URINE AUTO 1+ mg/dL (NEGATIVE); RBC, URINE AUTO 0 /HPF (0-3); SPECIFIC GRAVITY URINE AUTO 1.013 (1.002-1.035); SQUAMOUS EPITHELIAL CELL UR AU 0 /HPF (0-6); WBC, URINE AUTO 2 /HPF (0-3)
[2024-12-17] MEDS ORDERED: ATOR40TA75 PO (02:15)
[2024-12-17] MEDS ORDERED: ALLO300T2 PO (02:15)
[2024-12-17] MEDS ORDERED: ELIQ5TAB PO (02:15)
[2024-12-17] MEDS ORDERED: COLA100C5 PO (02:15)
[2024-12-17] MEDS ORDERED: FINA5TAB2 PO (02:15)
[2024-12-17] MEDS ORDERED: HOME MED LIST COMPLETE! XX SCH (02:20)
[2024-12-17] MEDS: allopurinoL 300 MG TAB PO SCH (08:48)
[2024-12-17] MEDS: ATORVASTATIN 20 MG TAB PO SCH (08:48)
[2024-12-17] MEDS: FUROSEMIDE 40 MG TAB PO SCH (08:48)
[2024-12-17] MEDS: FINASTERIDE 5MG TAB PO SCH (08:48)
[2024-12-17] MEDS: APIXABAN 5 MG TAB (ELIQUIS) PO SCH (08:48)
[2024-12-17] MEDS: DOCUSATE SODIUM 100MG CAPSULE PO SCH (08:48)
[2024-12-17] MEDS: MAGNESIUM OXIDE 400MG TAB (MAG-OX) PO SCH (08:48)
[2024-12-17 08:52] VITALS: BP 132/98
[2024-12-17] MEDS: METOPROLOL TARTRATE 100MG TAB PO ONE (08:52)
[2024-12-17] MEDS ORDERED: METOPROLOL TARTRATE 100MG TAB PO SCH ×2 (09:00→21:00)
[2024-12-17] MEDS: LATANOPROST 0.005% OPHTH SOLN 2.5 ML OU SCH (09:00)
[2024-12-17] MEDS: COSOPT OCUMETER PLUS 10ML (DORZOLAMIDE/TIMOLOL) OU SCH (09:00)
[2024-12-17] MEDS ORDERED: MAGN400T2 PO (16:42)
[2024-12-17 17:15] VITALS: BP 124/92; TEMP 97.6; O2SAT 97
[2024-12-18] MEDS ORDERED: AMIODARONE 200 MG TAB (PACERONE) PO SCH (09:00)
== END 2024-12-17 17:30 | disposition home or self-care (01) ==
LOC: M ED 21:40
DX: E83.42 Hypomagnesemia (principal); R53.1 Weakness; W19.XXXA Unspecified fall, initial encounter; J90 Pleural effusion, not elsewhere classified; I48.91 Unspecified atrial fibrillation; I25.10 Atherosclerotic heart disease of native coronary artery without angina pectoris; I11.0 Hypertensive heart disease with heart failure; M10.9 Gout, unspecified; M19.90 Unspecified osteoarthritis, unspecified site; N40.0 Benign prostatic hyperplasia without lower urinary tract symptoms; K57.90 Diverticulosis of intestine, part unspecified, without perforation or abscess without bleeding; G62.9 Polyneuropathy, unspecified; K21.9 Gastro-esophageal reflux disease without esophagitis; M48.061 Spinal stenosis, lumbar region without neurogenic claudication; Z95.5 Presence of coronary angioplasty implant and graft; Z87.442 Personal history of urinary calculi; Z95.0 Presence of cardiac pacemaker; Z79.01 Long term (current) use of anticoagulants; Z79.899 Other long term (current) drug therapy; Z88.2 Allergy status to sulfonamides

== ENCOUNTER 2024-12-19 16:37 | Inpatient (IN) | payer MEDICARE, OTHER ==
[~2024-12-19] VITALS: Ht 175.3 cm; Wt 70.4 kg
[~2024-12-19 16:37] MED LIST changes: +ALLO300T2 PO; +MAGN400T2 PO
[2024-12-19 17:37] VITALS: BP 108/80; O2SAT 97
[2024-12-19 17:37] LABS: BASO % 0.2 % (0.0-1.0); HEMATOCRIT 48.9 % (42.0-52.0); HEMOGLOBIN 16.6 g/dl (13.5-17.5); LYMPH # 0.9 10^3/uL (1.5-5.0); LYMPH % 4.9 % (24.0-44.0); MEAN CORPUSCULAR HEMOGLOBIN 32.1 pg (27.0-33.0); MEAN CORPUSCULAR HGB CONC 33.9 g/dl (32.0-36.5); MEAN CORPUSCULAR VOLUME 94.6 fl (80.0-96.0); MONO # 2.4 10^3/uL (0.0-0.8); MONO % 13.7 % (2.0-8.0); NEUTROPHILS % 80.8 % (36.0-66.0); PLATELET COUNT, AUTOMATED 161 10^3/uL (150-450); RED BLOOD COUNT 5.17 10^6/uL (4.30-6.10); WHITE BLOOD COUNT 17.3 10^3/uL (4.0-10.0)
[2024-12-19] MEDS ORDERED: ISOVUE-370 76% 100ML VIAL As Ordered ONE (17:43)
[2024-12-19 17:52] VITALS: BP 107/87; O2SAT 97
[2024-12-19 17:57] LABS: INR 2.28; PARTIAL THROMBOPLASTIN TIME 36.9 SECONDS (24.8-34.2); PROTHROMBIN TIME 25.2 SECONDS (12.5-14.5)
[2024-12-19 18:07] VITALS: BP 117/94; O2SAT 100
[2024-12-19 18:25] VITALS: BP 118/91; O2SAT 98
[2024-12-19 19:24] LABS: BLOOD UREA NITROGEN 27 MG/DL (9-23); CALCIUM LEVEL 9.2 MG/DL (8.3-10.6); CARBON DIOXIDE LEVEL 26 MMOL/L (20-31); CHLORIDE LEVEL 98 MMOL/L (98-107); CREATININE FOR GFR 1.13 MG/DL (0.70-1.30); GLOMERULAR FILTRATION RATE > 60.0 (>35); GLUCOSE, FASTING 143 MG/DL (74-106); POTASSIUM SERUM 5.2 MMOL/L (3.5-5.1); SODIUM LEVEL 137 MMOL/L (136-145)
[2024-12-19 20:50] LABS: APPEARANCE, URINE MANUAL CLEAR (CLEAR); COLOR, URINE MANUAL YELLOW (YELLOW); PROTEIN, URINE MANUAL TRACE mg/dL (NEGATIVE)
[2024-12-19 20:51] LABS: BILIRUBIN, URINE MANUAL NEGATIVE (NEGATIVE); BLOOD URINE MANUAL TRACE (NEGATIVE); GLUCOSE, URINE (UA) MANUAL NEGATIVE (NEGATIVE); KETONE, URINE MANUAL NEGATIVE (NEGATIVE); LEUKOCYTE ESTERASE, URINE MAN NEGATIVE (NEGATIVE); NITRITE, URINE MANUAL NEGATIVE (NEGATIVE); UROBILINOGEN, URINE MANUAL NORMAL (NORMAL)
[2024-12-19 21:07] LABS: BACTERIA, URINE NONE SEEN; HYALINE CAST, URINE 0-1 /lpf (0-1); MUCUS, URINE SMALL AMOUNT (NEGATIVE); RBC, URINE NONE SEEN /hpf (0-3); SQUAMOUS EPITHELIAL CELL URINE SMALL AMOUNT /hpf (SMALL AMT); WBC, URINE NONE SEEN /hpf (0-3)
[2024-12-19] MEDS: AZITHROMYCIN INJ 500 MG, VIAL MATE ADAPTER 1 EACH in NS 250 ML IV ONE (21:07)
[2024-12-19] MEDS ORDERED: HOME MED LIST COMPLETE! XX SCH (21:30)
[2024-12-19 21:57] LABS: C REACTIVE PROTEIN QUANTITATIV 10.59 MG/DL (<1.0)
[2024-12-19 22:09] LABS: PROCALCITONIN 0.28 ng/ml
[2024-12-19 22:11] LABS: BILIRUBIN,DIRECT 0.8 MG/DL (<0.4); BILIRUBIN,TOTAL 2.6 MG/DL (0.3-1.2)
[2024-12-19] MEDS: NS (Normal Saline) 0.9% 1,000 ML IV ONE (22:41)
[2024-12-19] MEDS: cefTRIAXone SOD 1 GM in DEXTROSE 5% (D5W) ADV/MINI-BAG 50 ML IV ONE (23:06)
[2024-12-20] MEDS ORDERED: LEVALBUTEROL 1.25MG 0.5ML CONCENTRATE NEB INH PRN (02:45)
[2024-12-20] MEDS ORDERED: DOCUSATE SODIUM 100MG CAPSULE PO PRN (03:00)
[2024-12-20] MEDS: LR 1,000 ML IV SCH (03:36)
[2024-12-20] MEDS: DOXYCYCLINE HYCLATE 100MG TABLET PO SCH (05:48)
[2024-12-20] MEDS: AMIODARONE 200 MG TAB (PACERONE) PO SCH (07:34)
[2024-12-20] MEDS: MAGNESIUM OXIDE 400MG TAB (MAG-OX) PO SCH (07:35)
[2024-12-20] MEDS: allopurinoL 300 MG TAB PO SCH (07:35)
[2024-12-20] MEDS: ASPIRIN 325 MG TAB PO SCH (15:55)
[2024-12-20 18:14] VITALS: BP 132/94; TEMP 98; O2SAT 95
[2024-12-20 19:50] VITALS: BP 122/92; TEMP 97.2; O2SAT 100
[2024-12-20] MEDS: APIXABAN 5 MG TAB (ELIQUIS) PO SCH (20:01)
[2024-12-20 20:03] VITALS: BP 122/92
[2024-12-20] MEDS: METOPROLOL TARTRATE 100MG TAB PO SCH (20:03)
[2024-12-20] MEDS: ATORVASTATIN 20 MG TAB PO SCH (20:05)
[2024-12-20] MEDS: LATANOPROST 0.005% OPHTH SOLN 2.5 ML OU SCH (21:00)
[2024-12-20 23:52] VITALS: BP 117/82; TEMP 97.1; O2SAT 100
[2024-12-21] MEDS: cefTRIAXone SOD 1 GM in DEXTROSE 5% (D5W) ADV/MINI-BAG 50 ML IV SCH (00:23)
[2024-12-21 03:59] VITALS: BP 116/66; TEMP 98; O2SAT 90
[2024-12-21 08:36] VITALS: BP 125/95; TEMP 97.8; O2SAT 91
[2024-12-21 10:17] LABS: HEMOGLOBIN 14.9 g/dl (13.5-17.5); MEAN CORPUSCULAR HEMOGLOBIN 32.2 pg (27.0-33.0); MEAN CORPUSCULAR HGB CONC 34.7 g/dl (32.0-36.5); MEAN CORPUSCULAR VOLUME 92.9 fl (80.0-96.0); PLATELET COUNT, AUTOMATED 134 10^3/uL (150-450); RED BLOOD COUNT 4.63 10^6/uL (4.30-6.10); WHITE BLOOD COUNT 13.5 10^3/uL (4.0-10.0)
[2024-12-21 10:52] LABS: ALBUMIN 2.7 G/DL (3.2-5.2); ALKALINE PHOSPHATASE 103 U/L (40-129); ALT/SGPT 122 U/L (7.0-40); AST/SGOT 65 U/L (<34); BILIRUBIN,TOTAL 2.4 MG/DL (0.3-1.2); BLOOD UREA NITROGEN 24 MG/DL (9-23); CALCIUM LEVEL 8.7 MG/DL (8.3-10.6); CARBON DIOXIDE LEVEL 26 MMOL/L (20-31); CHLORIDE LEVEL 103 MMOL/L (98-107); CREATININE FOR GFR 0.79 MG/DL (0.70-1.30); GLOMERULAR FILTRATION RATE > 60.0 (>35); GLUCOSE, FASTING 96 MG/DL (74-106); SODIUM LEVEL 140 MMOL/L (136-145); TOTAL PROTEIN 5.4 G/DL (5.7-8.2)
[2024-12-21] MEDS ORDERED: HYOSCYAMINE SULFATE 0.125 MG SUBL TABLET PO PRN (11:30)
[2024-12-21] MEDS: FUROSEMIDE 100MG/10ML VIAL IV ONE (11:40)
[2024-12-21] MEDS: MORPHINE 10MG/0.5ML ORAL CONCENTRATE SOLUTION U/D SL PRN (13:00)
[2024-12-21] MEDS: LORazepam 1 MG TAB PO PRN (15:57)
[2024-12-23] MEDS: MORPHINE 10MG/0.5ML ORAL CONCENTRATE SOLUTION U/D SL PRN (21:45)
== END 2024-12-25 14:45 | disposition expired | DRG 291 ==
LOC: M ED 16:37 → M ED INP 12-20 12:33 → M PCU 12-20 18:04 → M MS5PR 12-21 14:10
PROVIDERS: ADMIT Internal Medicine; ATTEND Student in an Organized Health Care Education/Training Program
DX: I11.0 Hypertensive heart disease with heart failure (principal); J18.9 Pneumonia, unspecified organism; I50.23 Acute on chronic systolic (congestive) heart failure; A41.9 Sepsis, unspecified organism; R65.20 Severe sepsis without septic shock; G45.9 Transient cerebral ischemic attack, unspecified; R94.5 Abnormal results of liver function studies; R74.01 Elevation of levels of liver transaminase levels; E78.5 Hyperlipidemia, unspecified; I73.9 Peripheral vascular disease, unspecified; R29.6 Repeated falls; M48.061 Spinal stenosis, lumbar region without neurogenic claudication; I49.5 Sick sinus syndrome; K21.9 Gastro-esophageal reflux disease without esophagitis; M10.9 Gout, unspecified; I25.10 Atherosclerotic heart disease of native coronary artery without angina pectoris; Z95.0 Presence of cardiac pacemaker; N40.0 Benign prostatic hyperplasia without lower urinary tract symptoms; E87.5 Hyperkalemia; Z95.2 Presence of prosthetic heart valve; I48.91 Unspecified atrial fibrillation; R54 Age-related physical debility; I42.8 Other cardiomyopathies; Z98.41 Cataract extraction status, right eye; Z79.899 Other long term (current) drug therapy; Z88.2 Allergy status to sulfonamides; Z88.8 Allergy status to other drugs, medicaments and biological substances; Z79.01 Long term (current) use of anticoagulants; Z66 Do not resuscitate